=== PATIENT | male | born 1965 | race Caucasian/White ===

== ENCOUNTER 2025-01-02 15:56 | Emergency (ER) | payer OTHER, SELFPAY ==
--- OUTSIDE RECORDS SUMMARY | 2025-01-02 16:00 | XMS_ITS | Clinical Summary ---
Author Organization [facility] Address [address] [place] [address] Care Team Providers Care Perioperative Manager Name Role Phone Nelson Palacios M.D. Primary Care Provider [phone] Source Comments Patient records contain information from all sites at [facility]. For routine questions regarding patient records, call [phone] during business hours, M-F 8:00 AM - 5:00 PM Central Time. Record requests for emergency care only can be directed to [phone] at any time.[facility] Allergies No known active allergies Medications * This document contains information received from the source organization and may not represent a complete record from that organization. multivitamin with minerals capsule Take 1 tablet by mouth daily. 12/09/19 16 Active OMEGA-3/DHA/EPA /DPA/FISH OIL (OMEGA-3 2100 ORAL) Take 1 capsule by mouth daily. 12/09/19 16 Active inhalational spacing device (AEROCHAMBER MV) spacer 1 each as needed (sob). 1 each 10/15/20 17 Active calcium citrate-vitamin D3 (CITRACAL+D) 315-200 mg-unit per tablet Take 1 tablet by mouth 2 (two) times a day with meals. Active ipratropium-alb uteroL (DUONEB) 0.5-2.5 mg/3 mL nebulizer solution Inhale 3 mL by nebulization every 6 (six) hours as needed for wheezing or shortness of breath. 120 mL 11 06/24/20 22 Active miscellaneous medical supply miscIndications :Sleep Apnea Use as directed 1 each 06/06/20 Active aspirin 325 mg tablet Take 1 tablet by mouth daily. 12/09/19 Active ibuprofen (ADVIL,MOTRIN) 200 mg capsule Take 600 mg by mouth every 4 (four) hours as needed. 01/03/20 24 Active melatonin 5 mg tablet Take 5 mg by mouth at bedtime as needed. for sleep 01/04/20 24 Active Tinactin 1 % spray as needed. 12/24/19 24 Active gabapentin (NEURONTIN) 600 mg tabletIndicatio ns:Fibromyalgia TAKE 2 TABLETS(1,200 MG TOTAL) 3 TIMES A DAY 540 tablet 3 03/05/20 24 Active ARIPiprazole (ABILIFY) 5 mg tabletIndicatio ns:Bipolar II Disorder (HCC) take 1 tablet daily 90 tablet 3 03/05/20 24 Active albuterol 90 mcg/actuation inhalerIndicati ons:Chronic Obstructive Pulmonary Disease (HCC) Inhale 2 puffs every 6 (six) hours as needed for wheezing or shortness of breath. 54 g 3 03/27/20 24 Active amitriptyline (ELAVIL) 10 mg tabletIndicatio ns:Fibromyalgia Take 3 tablets (30 mg total) by mouth at bedtime. 270 tablet 3 03/27/20 24 Active Additional Information Patient not taking.Reported on 12/28/2024 hydrOXYzine (ATARAX) 25 mg tabletIndicatio ns:Anxiety Take 1 tablet (25 mg total) by mouth every 6 (six) hours as needed for anxiety. 90 tablet 1 03/27/20 24 Active propranoloL (INDERAL) 10 mg tablet Take 1 tablet (10 mg total) by mouth 2 (two) times a day. 180 tablet 3 03/27/20 24 Active triamcinolone (KENALOG) 0.1 % cream Apply 1 Application topically 2 (two) times a day. Apply to rash on lower legs twice daily. 240 g 3 04/03/20 24 Active DULoxetine (Cymbalta) [address] capsuleIndicati ons:Anxiety,Dep ression Major Recurrent Moderate (HCC) Take 2 capsules (120 mg total) by mouth daily. 180 capsule 3 05/23/20 24 025 Active tadalafiL (Cialis) 10 mg tabletIndicatio ns:Benign Prostatic Hyperplasia Hypertrophy With Obstruction Take 1 tablet (10 mg total) by mouth daily. 90 tablet 3 07/19/20 24 Active omeprazole (PriLOSEC) [address] capsuleIndicati ons:Gastroesoph ageal Reflux Disease Without Esophagitis Take 1 capsule (20 mg total) by mouth daily before morning meal. 90 capsule 3 07/19/20 24 Active tamsulosin (Flomax) 0.4 mg 24 hr capsuleIndicati ons:Benign Prostatic Hyperplasia Hypertrophy With Obstruction Take 2 capsules (0.8 mg total) by mouth daily. 180 capsule 3 08/31/20 24 Active cyclobenzaprine (FlexeriL) 10 mg tablet Take 1 tablet (10 mg total) by mouth 3 (three) times a day as needed for muscle spasms. Use caution, this medicine may impair you. 90 tablet 11/12/19 25 Active acyclovir (Zovirax) 400 mg tabletIndicatio ns:Herpes Genitalis Take 1 tablet (400 mg total) by mouth 4 (four) times a day. 28 tablet 12/28/19 25 Active atorvastatin (Lipitor) 20 mg tabletIndicatio ns:Hyperlipidem ia Mixed Take 1 tablet (20 mg total) by mouth daily. 90 tablet 12/28/19 25 Active vancomycin (Vancocin) 125 mg capsuleIndicati ons:Enterocolit is Due To Clostridium Difficile Not Specified As Recurrent Take 1 capsule (125 mg total) by mouth 4 (four) times a day for 10 days. 40 capsule 12/28/19 25 025 Active acetylcysteine (NAC) 600 mg capsule Take 2 capsules by mouth 2 (two) times a day. 01/26/20 24 025 Discontin ued(Thera py completed ) cyclobenzaprine (FLEXERIL) 10 mg tabletIndicatio ns:Fibromyalgia ,Pain Low Back Chronic TAKE 1 TABLET 3 TIMES A DAYAS NEEDED FOR MUSCLE SPASM (FIBROMYALGIA) 90 tablet 03/05/20 24 025 Discontin ued(Thera py completed ) cephalexin (KEFLEX) 500 mg capsuleIndicati ons:Infection Skin Take 1 capsule (500 mg total) by mouth 3 (three) times a day. 30 capsule 03/27/20 24 025 Discontin ued(Thera py completed ) atorvastatin (LIPITOR) 20 mg tabletIndicatio ns:Hyperlipidem ia Mixed Take 1 tablet (20 mg total) by mouth daily. 90 tablet 3 04/03/20 24 025 Discontin ued(Reord er) acyclovir (ZOVIRAX) 400 mg tablet Take 1 tablet (400 mg total) by mouth 4 (four) times a day. 28 tablet 1 04/09/20 24 025 Discontin ued(Reord er) sulfamethoxazol e-trimethoprim (Bactrim DS) 800-160 mg per tabletIndicatio ns:Sinusitis Acute Take 1 tablet by mouth 2 (two) times a day. 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 Benign Prostatic Hyperplasia Hypertrophy With Ob struction 06/25/2015 Sleep Apnea 04/17/2013 Overview (09/19/2017): Overview: CPAP, diagnosis 2009 Psoriasis 02/28/2013 Overview (09/19/2017): Overview: Elbows, knees Dermatitis Seborrheic 02/28/2013 Gastroesophageal Reflux Disease NOS 04/07/2012 Arthralgia of temporomandibular joint 02/03/2012 Anxiety 12/23/2011 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 meds that were effective as of his last visit at [facility] on 01/24/10 were: Bupropion XL 300mg, cyjmbalta 60mg, Gabapentin 1200mg tid, lithium 300mg tid, and trazodone 200mg at HS. From Dr. Chi's Nov 2010 intake: The patient has had trials on Celexa, Lexapro, Paxil, Prozac, Effexor, Remeron, nortriptyline, amitriptyline, and Cymbalta. He states several of the SSRIs worked for a period of time as did Effexor, but he did not like the side effects and the effects did not seem to last. Neither nortriptyline nor amitriptyline was helpful for pain. HE STATES HE DID Tried strattera for 30 days and stopped because lack of benefit and side effects of difficulty with urination. NOT TOLERATE REMERON. He tried lithium, which did nothing. He states Abilify may have helped, but he did not like the cost. He has not been on Depakote or Tegretol. He retried paxil in 2011 and felt foggy. Pain Back 01/01/2009 Fibromyalgia 01/01/2009 Resolved Problems Problem Noted Date Diagnosed Date Resolved Date Cataract Senile Cortical Left 11/19/2021 01/14/2022 Overview (11/19/2021): Added automatically from request for surgery [id number] Laceration Extensor Muscle F ascia And Tendon Left Index Finger At Wrist And Hand Level Subsequent 02/16/2019 07/15/2021 Overview (02/16/2019): Added automatically from request for surgery [id number] [facility] 01/05/2017 019 Follow Up Examination Postoperative Visit 07/15/2021 Encounters Date Type Department Care Team Description 12/28/2024 8:59 AM CLOTH WEIGHER - 12/28/2024 11:59 PM CLOTH WEIGHER Hospital Encounter Department of Laboratory Medicine in [address] [phone] Ronald Koenig APRN, C.N.P. Diarrhea From Antibiotic Discharge Disposition: Home or Self Care 12/28/2024 8:59 AM CLOTH WEIGHER - 12/28/2024 11:59 PM CLOTH WEIGHER Hospital Encounter Department of Laboratory Medicine in [address] [phone] Ronald Koenig APRN, C.N.P. Diarrhea From Antibiotic Discharge Disposition: Home or Self Care 12/28/2024 8:30 AM CLOTH WEIGHER Office Visit Department of Family Medicine, [facility], in [address] [phone] Westley Walker P.A.-C., Ronald Love APRN CVernellN.P. Enterocolitis Due To Clostridium Difficile Not Specified As Recurrent (Primary Dx); Sinusitis Acute; Chronic Obstructive Pulmonary Disease (HCC); Hyperlipidemia Mixed; Herpes Genitalis 12/28/2024 Results Follow-Up Department of Family Medicine, [facility], in [address] [phone] Ronald Koenig APRN, C.N.P. GI Pathogen Panel, PCR, Feces 12/25/2024 Patient Self-Triage [facility] Symptom Soap Drier Tender, Provider 11/12/2024 9:00 AM CLOTH WEIGHER Telemedicine [facility] in [address] [phone] Rose Crabtree P.A.-C. Sinusitis Acute (Primary Dx); Issue Renewal Prescription from Last 3 Months Immunizations Immunization Administration Dates Next Due DTaP (Infanrix, Tripedia) 08/23/2008 Influenza TIV (IM) 08/17/2012 Influenza, Seasonal, Injectable 08/14/2012,08/16,08/17/2010 Influenza, Unspecified 08/17/2010 PCV20 06/24/2022 PPSV23 11/20/2019 RZV (SHINGRIX) 07/20/2021 SARS-COV-2 (COVID-19) - ISHAAN REYNA (J&J)(Discontinued) 02/12/2021 SARS-COV-2 (COVID-19) - MODE RNA (12 YEARS AND OLDER) Fall Seasonal 09/27/2023 Tdap 02/15/2019,09/29/2011,08/23/2008 influenza vaccine quad (FLUZONE/FLUARIX) (6 months and older)(PF) 09/27/2023,11/02/2022,11/20/2019,2017,09/19/2017,07/07/2016,11/18/2015 Family History Medical History Relation Name Comments ADD Father Tre Alcohol abuse Father Tre Anxiety disorder Father Tre Bipolar Father Tre COPD Father Tre Coronary artery disease Father Tre Trip le bypass Depression Father Tre Heart disease Father Tre Hyperlipidemia Father Tre Hypertension Father Tre Lung cancer Father Tre Melanoma Father Tre Parkinson disease Father Tre Alcohol abuse Mother Neena Anxiety disorder Mother Neena Bipolar Mother Neena Bipolar disorder Mother Neena Coronary artery disease Mother Neena Leth al heart attack Depression Mother Neena Diabetes Mother Neena Heart disease Mother Neena Hypertension Mother Neena Obesity Mother Neena Suicide Attempts Mother Neena Alcohol abuse Paternal Grandfather Cisco Psychiatric disorder Paternal Grandmother Amblyopia Neg Hx Anesthesia problems Neg Hx Blindness Neg Hx Cataracts Neg Hx Glaucoma Neg Hx Macular degeneration Neg Hx Retinal degeneration Neg Hx Retinal detachment Neg Hx Strabismus Neg Hx Relation Name Status Comments Father Tre Mother Neena (Age 51) Paternal Grandfather Cisco Paternal Grandmother Social History Tobacco Use Types Packs/Day Years Used Date Smoking Tobacco: Every Day Cigarettes 0.5 79.5 Started: 1972 Passive Smoke Exposure: Current Smokeless Tobacco: Never Tobacco Cessation:Ready to Q uit: Not Asked; Counseling Given: Not Answered Alcohol Use Standard Drinks/Week Comments Yes 8 (1 standard drink = 0.6 oz pur e alcohol) [facility] Utilities Answer Date Recorded In the past 12 months has [employer] gas, oil, or water [employer] threatened to shut off services in your home? No 03/27/2024 Humiliation, Afraid, Rape, and Kick questionnair e Answer Date Recorded Within the last year, have y ou been afraid of your partner or ex-partner? No 03/14/2023 Within the last year, have y ou been humiliated or emotionally abused in other ways by your partner or ex-partner? No Within the last year, have y ou been kicked, hit, slapped, or otherwise physically hurt by your partner or ex-partner? No 03/14/2023 Within the last year, have y ou been raped or forced to have any kind of sexual activity by your partner or ex-partner? No 03/14/2023 Social Connection and Isolat ion Panel [NHANES] Answer Date Recorded In a typical week, how many times do you talk on the phone with family, friends, or neighbors? More than three times a week 03/14/2023 How often do you get togethe r with friends or relatives? More than three times a week 03/14/2023 How often do you attend chur ch or bahai services? 1 to 4 times per year 03/14/2023 Do you belong to any clubs o r organizations such as hoahaoism groups, unions, fraternal or athletic groups, or school groups? No 03/14/2023 How often do you attend meet ings of the clubs or organizations you belong to? Never 03/14/2023 Are you , , di vorced, , never , or living with a partner? Living with partner 03/14/2023 AUDIT-C Answer Date Recorded Q1: How often do you have a drink containing alc ohol? Never 03/14/2023 Average Number of Drinks Not on file 023 Frequency of Binge Drinking Not on file 06/2023 Overall Financial Resource Strain (CARDIA) Answe r Date Recorded How hard is it for you to pa y for the very basics like food, housing, medical care, and heating? Somewhat hard 03/14/2023 PHQ-2 Answer Date Recorded PHQ-2 Score 5 12/27/2024 [facility] - Occupational Stress Questionnaire Answer Date Recorded Do you feel stress - tense, restless, nervous, or anxious, or unable to sleep at night because your mind is troubled all the time - these days? To some extent 03/14/2023 Exercise Vital Sign Answer Date Recorde d On average, how many days pe r week do you engage in moderate to strenuous exercise (like a brisk walk)? 2 days 03/27/2024 On average, how many minutes do you engage in exercise at this level? 20 min 03/27/2024 Hunger Vital Sign Answer Date Recorded Within the past 12 months, y ou worried that your food would run out before you got the money to buy more. Never true 03/27/20 24 Within the past 12 months, t he food you bought just didn't last and you didn't have money to get more. Never true 03/27/2024 PRAPARE - Transportation Answer Date Re corded In the past 12 months, has l ack of transportation kept you from medical appointments or from getting medications? No 03/08 In the past 12 months, has l ack of transportation kept you from meetings, work, or from getting things needed for daily living? Yes 03/27/2024 Depression Answer Date Recor ded PHQ-9 Total Score (max 27) 22 12/27 Nutrition Answer Date Recorded On average, how many serving s of fruits and vegetables do you eat per day (serving size is equal to 1 cup or approximately the size of a tennis ball)? 0-2 03/27/2024 Dental Answer Date Recorded Dental: Regular Dentist No 11/13/19 Employment Answer Date Recorded Employment status Unemployed/not in e paid workforce but seeking employment 03/27/2024 Housing Stability Answer Date Recorded What is your living situation today? I have a [facility] place to live 03/27/2024 Education Answer Date Recorded What is the highest level of school you have completed or the highest degree you have received? Associate degree: academic program 09/18/2019 Sex and Gender Information Value Date Recorded Sex Assigned at Male 09/29/2021 9:36 AM CLOTH WEIGHER Legal Sex Male 10:27 AM CLOTH WEIGHER Gender Identity Male 09/29/2021 9:36 AM CLOTH WEIGHER Sexual Orientation Straight 11/15/2019 7: 41 PM CLOTH WEIGHER Last Filed Vital Signs Vital Sign Reading Time Taken Comments Blood Pressure 150/93 12/28/2024 8:36 AM CLOTH WEIGHER Pulse 71 12/28/2024 8:36 AM CLOTH WEIGHER Temperature 36.1 C (97 F) 12/28/2024 8:28 AM CLOTH WEIGHER Respiratory Rate 20 11/02/2022 1:52 PM CLOTH WEIGHER Oxygen Saturation 95% 01/11/2022 3:20 PM CLOTH WEIGHER Inhaled Oxygen Concentration - - Weight 113 kg (249 lb 1.9 oz) 12/28/2024 8:28 AM CLOTH WEIGHER Height 170.8 cm (5' 7.24) 12/28/2024 8:28 AM CS T Body Mass Index 38.74 12/28/2024 8:28 AM CLOTH WEIGHER Plan of Treatment Upcoming Encounters Date Type Department Care Team (Late st Contact Info) Description 02/25/2025 3:20 PM CDT Comprehensive Visit Department of Family Medicine, [facility], in [place], [place] [address] [place] [phone] Nelson Palacios M.D. [address] [place] [phone] Health Maintenance Due Date Last Done Comments CT Colonography 1965 Cologuard 1965 FIT 1965 Hepatitis B Screening 1965 Lung Cancer Screening 09/10/2012 09/10/2011 Zoster Vaccines (2 of 2) 09/14/2021 07/20/2021 RSV vaccine - (32-36 weeks) or 60+ years (1 - Risk 60-74 years 1-dose series) 2024 COVID-19 Vaccine ( - 2023- season) 2024 09/27/2023, 12/18/2021, 02/12/2021 Tobacco Cessation counseling 07/12/2024 07/12/2023 Influenza Vaccine (#1) 2024 , 11/02/2022, 11/20/2019, Additional history exists Office Visit for Blood Pressure Check / Re-check 03/27/2025 12/28/2024 Colonoscopy 06/08/2026 06/08/2016 (Perf ormed elsewhere), 11/12/2015 Colorectal Cancer Screening 06/08/2026 Fasting Glucose for Diabetes Screening 12/28/2027 12/28/2024, 03/23/2023, 07/20/2021, Additional history exists Lipid (Cholesterol) Screening 03/23/2028 03/23/2023, 07/20/2021, 11/20/2019, Additional history exists DTaP,Tdap,and Td Vaccines (5 - Td or Tdap) 02/15/2029 02/15/2019, 09/29/2011, 08/23/2008, Additional history exists Hepatitis C Screening Completed 11/20/2019 Pneumococcal vaccine (50+ years) Completed 06/24/2022, 11/20/2019 Depression Screening (Annual PHQ-2) Completed 12/27/2024 Hepatitis B Vaccines Aged Out No long er eligible based on patient's age to complete this topic IPV Vaccines Aged Out No longer eligi ble based on patient's age to complete this topic Medical Devices Implanted Type Area Chief Business Development Officer Device Identifier Shelf Expiration Date Model / Serial / Lot Hardware E.G. Pins/Screws/ Rods Hardware e.g. pins/screws /rods Right: Ankle Lens Tcn [id number] +22.5d - [id number] - [id number] Implanted:Qt y: 1 on 01/11/2022 by Joe Sanders M.D. at [facility] Ocular Lens Left: Eye [employer] (Previously CODY) [id number] 07/03/2025 [id number] / [id number] / Procedures Procedure Name Priority Date/Time Associated Diagnosis Comments GI PATHOGEN PANEL, PCR, F Routine 12/28/2024 9:25 AM CLOTH WEIGHER Diarrhea From Antibiotic BASIC METABOLIC PANEL, S/P Routine 12/28/2024 9:08 AM CLOTH WEIGHER Diarrhea From Antibiotic CBC WITH DIFFERENTIAL, B Routine 12/28/2024 9:08 AM CLOTH WEIGHER Diarrhea From Antibiotic LIPID PANEL, S Routine 03/23/2023 6:08 PM CDT Hyperlipidemia Mixed HCV AB SCRN W/REFLEX TO HCV PCR, S Routine 11/20/2019 3:40 PM CLOTH WEIGHER Health Maintenance Examination Adult from Last 3 Months or Most Recently Relevant to Health Maintenance Results * (ABNORMAL) GI Pathogen Panel, PCR, Feces (12/28/2024 9:25 AM CLOTH WEIGHER) Specimen Source STOOL 11:17 AM CLOTH WEIGHER [facility] Campylobacter species Negative Negative 12/28/2024 11:17 AM CLOTH WEIGHER [facility] C. difficile toxin Positive(A) Negative 12/28 11:17 AM CLOTH WEIGHER [facility] Comment: A positive C. difficile result may reflect asymptomatic carriage or C. difficile-associated diarrhea. Plesiomonas shigelloides Negative Negative 12/28/2024 11:17 AM CLOTH WEIGHER [facility] Salmonella species Negative Negative 2024 11:17 AM CLOTH WEIGHER [facility] Vibrio species Negative Negative 12/28/2024 11:17 AM CLOTH WEIGHER [facility] Vibrio cholerae Negative Negative 11:17 AM CLOTH WEIGHER [facility] Yersinia species Negative Negative 12/28/19 11:17 AM CLOTH WEIGHER [facility] Enteroaggregative E. coli (EAEC) Negative Negative 12/28/2024 11:17 AM CLOTH WEIGHER [facility] Enteropathogenic E. coli (EPEC) Negative Negative 12/28/2024 11:17 AM CLOTH WEIGHER [facility] Enterotoxigenic E. coli (ETEC) Negative Negative 12/28/2024 11:17 AM CLOTH WEIGHER [facility] Shiga toxin producing E. coli Negative Negative 12/28/2024 11:17 AM CLOTH WEIGHER [facility] Shigella/Enteroinvas jamey E. coli Negative Negative 12/28/2024 11:17 AM CLOTH WEIGHER [facility] Cryptosporidium species Negative Negative 12/28/2024 11:17 AM CLOTH WEIGHER [facility] Cyclospora cayetanensis Negative Negative 12/28/2024 11:17 AM CLOTH WEIGHER [facility] Entamoeba histolytica Negative Negative 12/28/2024 11:17 AM CLOTH WEIGHER [facility] Giardia Negative Negative 12/28/2024 11:17 AM CLOTH WEIGHER [facility] Adenovirus F40/41 Negative Negative 025 11:17 AM CLOTH WEIGHER [facility] Astrovirus Negative Negative 12/28/2024 11:17 AM CLOTH WEIGHER [facility] Norovirus GI/GII Negative Negative 12/28/19 25 11:17 AM CLOTH WEIGHER [facility] Rotavirus Ag, F Negative Negative 11:17 AM CLOTH WEIGHER [facility] Sapovirus Negative Negative 12/28/2024 11:17 AM CLOTH WEIGHER [facility] Comment: ----ADDITIONAL INFORMATION---- This assay is performed using the FDA-cleared FilmArray GI Panel ([employer] Semi-Urgent This is a semi-urgent result(MOTA) [facility] Stool (Stool) 12/28/2024 9:2 5 AM CLOTH WEIGHER 12/28/2024 9:25 AM CLOTH WEIGHER us Ronald Koenig APRN, C.N.P. LAB MICROBIOLOGY - GENERAL ORDERABLES Final Result [facility] [address] [place] [address], [facility] [address] [place] [address] * (ABNORMAL) CBC with Differential, Blood (12/28/2024 9:08 AM CLOTH WEIGHER) Hemoglobin 15.6 13.2 - 16.6 g/dL 12/28/2024 9:21 AM CLOTH WEIGHER [facility] Hematocrit 46.2 38.3 - 48.6 % 12/28/2024 9:21 AM CLOTH WEIGHER [facility] Erythrocytes 5.16 4.35 - 5.65 x10(12)/L 12/28/2024 9:21 AM CLOTH WEIGHER [facility] MCV 89.5 78.2 - 97.9 fL 12/28/2024 9:21 AM CLOTH WEIGHER [facility] RBC Distrib Width 14.6(H) 11.8 - 14.5 % 12/28/2024 9:21 AM CLOTH WEIGHER [facility] Platelet Count 315 135 - 317 x10(9)/L 12/28/2024 9:21 AM CLOTH WEIGHER [facility] Leukocytes 8.7 3.4 - 9.6 x10(9)/L 12/28/2024 9:21 AM CLOTH WEIGHER [facility] Neutrophils 5.09 1.56 - 6.45 x10(9)/L 12/28/2024 9:20 AM CLOTH WEIGHER [facility] Lymphocytes 2.52 0.95 - 3.07 x10(9)/L 12/28/2024 9:21 AM CLOTH WEIGHER [facility] Monocytes 0.74 0.26 - 0.81 x10(9)/L 12/28/2024 9:21 AM CLOTH WEIGHER [facility] Eosinophils 0.26 0.03 - 0.48 x10(9)/L 12/28/2024 9:21 AM CLOTH WEIGHER [facility] Basophils 0.08 0.01 - 0.08 x10(9)/L 12/28/2024 9:21 AM CLOTH WEIGHER [facility] Blood (Blood, Venous) 12/28/2024 9:08 AM CLOTH WEIGHER 12/28/2024 9:14 AM CLOTH WEIGHER Ronald Koenig APRN C.NVernellPVernell LAB BLOOD ADD-ON Fi nal Result [facility] [address] [place] [address], [facility] in [place] [address] [place] [address] * (ABNORMAL) Basic Metabolic Panel (12/28/2024 9:08 AM CLOTH WEIGHER) Potassium, P 3.9 3.6 - 5.2 mmol/L 12/28/2024 9:35 AM CLOTH WEIGHER [facility] Sodium, P 142 135 - 145 mmol/L 12/28/2024 9:35 AM CLOTH WEIGHER [facility] Chloride, P 107 98 - 107 mmol/L 12/28/2024 9:35 AM CLOTH WEIGHER [facility] Bicarbonate, P 25 22 - 29 mmol/L 12/28/2024 9:35 AM CLOTH WEIGHER [facility] Anion Gap, P 10 7 - 15 12/28/2024 9:35 AM CLOTH WEIGHER [facility] BUN (Blood Urea Nitrogen), P 10 8 - 24 mg/dL 12/28/2024 9:35 AM CLOTH WEIGHER [facility] Creatinine 0.87 0.74 - 1.35 mg/dL 12/28/2024 9:35 AM CLOTH WEIGHER [facility] Estimated GFR (eGFR) >90 >=60 mL/min/BSA 12/28/2024 9:35 AM CLOTH WEIGHER [facility] Comment: Estimated GFR calculated using the 2020 CKD_EPI creatinine equation. Calcium, Total, P 8.4(L) 8.8 - 10.2 mg/dL 12/28/2024 9:35 AM CLOTH WEIGHER [facility] Glucose, P 102 70 - 140 mg/dL 12/28/2024 9:35 AM CLOTH WEIGHER [facility] Blood (Blood, Venous) 12/28/2024 9:08 AM CLOTH WEIGHER 12/28/2024 9:14 AM CLOTH WEIGHER us Cristian Augustin APRNNRashida LAB BLOOD ADD-ON Fi nal Result [facility] [address] [place] [address], [place] [facility] in [place] [address], [place] [phone] * Lipid Panel (03/23/2023 6:08 PM CDT) Triglycerides 105 mg/dL 03/23/2023 6:38 PM CDT [facility] Comment: ----REFERENCE VALUE---- Normal: <150 mg/dL Borderline High: 150-199 mg/dL High: 200-499 mg/dL Very High: > or =500 mg/dL Cholesterol, Total 127 mg/dL 2022 6:38 PM CDT [facility] Comment: ----REFERENCE VALUE---- Desirable: < 200 mg/dL Borderline High: 200 - 239 mg/dL High: > or = 240 mg/dL Cholesterol, LDL, Calculated 67 mg/dL 03/23/2023 6:38 PM CDT R[facility] Comment: ----REFERENCE VALUE---- Desirable: <100 mg/dL Above Desirable: 100-129 mg/dL Borderline High: 130-159 mg/dL High: 160-189 mg/dL Very High: >=190 mg/dL ----ADDITIONAL INFORMATION---- LDL cholesterol calculated using the Campos/NIH equation. Cholesterol, HDL 41 >=40 mg/dL 03/23/20 6:38 PM CDT [facility] Cholesterol, Non-HDL, Calculated 86 mg/dL 03/23/2023 6:38 PM CDT [facility] Comment: ----REFERENCE VALUE---- Desirable: <130 mg/dL Above Desirable: 130-159 mg/dL Borderline High: 160-189 mg/dL High: 190-219 mg/dL Very High: > or =220 mg/dL Fasting (8 HR or more) yes 03/23/2023 6:13 PM CDT [facility] Blood (Blood, Venous) 03/23/2023 6:08 PM CDT 03/23/2023 6:13 PM CDT us Nelson Palacios M.D. LAB BLOOD ADD-ON Final Re sult Performing Organization Address City/[facility] Co de Phone Number [facility] [address] [place] [address], [facility] R[facility] [place] [address] [place] [address] * HCV Ab Scrn w/Reflex to HCV PCR, Serum (11/20/2019 3:40 PM CLOTH WEIGHER) HCV Ab Screen, S Negative Negative 11/21/19 3:42 AM CLOTH WEIGHER ECLR Comment: Biotin has been identified by the industry segment specialist as a potential interfering substance. Higher concentrations of biotin may be found in multivitamins, hair/nail supplements, and workout supplements. If the result does not match clinical observations, repeat testing after patient refrains from the use of supplements for at least 12 hours. Blood (Blood, Venous) 11/20/2019 3:40 PM CLOTH WEIGHER 11/20/2019 9:47 PM CLOTH WEIGHER Narrative [facility] - 11/21/2019 3:42 AM CLOTH WEIGHER Specimen Information: Specimen ID: [id number] Specimen Type: Blood Specimen Collection Start Date: 11/20/2019 3:40 PM Specimen Received Date: 11/20/2019 9:47 PM Specimen ID: [id number] Specimen Type: Blood Specimen Collection Start Date: 11/20/2019 3:40 PM Specimen Received Date: 11/20/2019 9:46 PM us Paco Kamara M.D. LAB MICROBIOLOGY - BLOOD ORDERAB LES Final Result Performing Organization Address [facility]/ZIP Co de Phone Number [facility] [address] [place] [address], [facility] [address] [address] from Last 3 Months or Most Recently Relevant to Health Maintenance Additional Health Concerns Infection Onset Date Last Indicated C. difficile 12/28/2024 12/28/[address] [place] [address] [facility] Care Teams Perioperative Manager Relationship Specialty Start Date End Date Nelson Palacios M.D. [address] [place] [address] [place] [phone] PCP - General 12/20/22
--- OUTSIDE RECORDS SUMMARY | 2025-01-02 16:00 | XMS_ITS | Data Portability ---
Author Organization CO - [facility], autoContract - [id number] [facility] Address [address] [place] [address] Assessment Encounter Date Assessment Date Assessment LastModified by Organization Details LastModified Time 11/08/2024 11/08/2024 ASSESSMENT: Patient is a good candidate for conservative care and the prognosis is for a favorable outcome that achieves the patients' goals. We discussed etiology, activity modifications, home care, and other treatment options. Initially, it is recommended that the patient receive in-office treatment 1 times per week for 8 weeks at which time a re-evaluation will be performed to determine an appropriate change in plan. Initially, treatment will focus on joint manipulation to restore range of motion and reduce pain. We will slowly progress to therapeutic exercises and activities to improve function, strength, and stability may also be used as warranted. If the patient is not responding as expected, more invasive procedures will be discussed along with a referral. All considerations above were discussed with the patient and questions answered to satisfaction. If the patient should have any additional questions, or should the condition evolve or worsen, the patient should not hesitate to contact our office. [email or web address] Not available 11/08/2024 15:36:50 Plan of Treatment Reminders Order Date Submit Date Provider Last Modified By Organization Details Last Modified Time Details Appointments None record ed. Lab None record ed. Referral None record ed. Procedures None record ed. Surgeries None record ed. Imaging None record ed. Medication Orders None record ed. Patient TargetsNo targets recorded. Patient InstructionsNo instructions recorded. Reason for Referral None Reported. Problems Name Problem SNOMED Code Status Onset Date Resolution Date Notes Provider Name and Address Organization Details Recorded Time Neck pain 02996524 Active 2024 Josef Zayas DC [address], [place], [address], [facility] 15:36:51 Cervical segmental dysfunction 445756161 Active 2024 Josef Zayas DC [address], [place], [address], [facility] 15:36:51 Lumbar segmental dysfunction 204051193 Active 2024 Josef Zayas DC [address], [place], [address], [facility] 15:36:51 Thoracic segmental dysfunction 697308396 Active 2024 Josef Zayas DC [address], [place], [address], [facility] 15:36:51 Lesion of lumbar spine 559519510 Active 2024 Josef Zayas DC [address], [place], [address], [facility] 15:36:51 Problem Notes None recorded. Procedures Surgical History Date Name Laterality Status Provider Name and Address Organization Details Recorded Time 41699: Spinal manipulation , 3 to 4 regions completed Josef Zayas [place] [address], [place], [address], [facility] 11/08/2024 15:37:51 Imaging Results None recorded. Procedure Notes None recorded. Medical Equipment None Reported. Vitals None Recorded Social History None recorded. Functional Status None recorded. Mental Status None recorded. Family History Nothing Reported. Medical History No medical history recorded. Past Encounters Encounter ID Performer Location Encounter Start Date Encounter Closed Date Diagnosis/Indication Diagnosis SNOMED-CT Code Diagnosis ICD10 Code Diagnosis Note [id number] Josef Zayas [facility] [address] [place] [address] 11/08/2024 14:26:07 11/08/2024 16:12:42 Cervical segmental dysfunction 020150882 M99.01 Neck pain 65171330 M54.2 Thoracic s egmental dysfunction 578181820 M99.02 Lumbar seg mental dysfunction 812264874 M99.03 Lesion of lumbar spine 703544060 M99.01 Health Concerns Section Related Observation LastModified by Organization Detai ls LastModified Time None Recorded Concern Status LastModified by Organization Details LastModified Time None Recorded Advance Directives Directive None Recorded Payers Encounter Date Sequence Insurance Name Policy Number Policy Barron Covered Member ID Barron Member ID Guarantor Name 11/08/2024 1 [facility] [id number] Kennedy Nicole [id number] Raji Nicole Notes Date Note Type Note Provider Name and Address Organization Details Recorded Time 11/08/2024 text/html HPI - Cervical SpineReported bypatient.Location: bilateral Quality:aching Severity:moderate Duration:2 weeks Timing:gradual Alleviating Factors:ice Aggravating Factors:sitting Associated Symptoms:no numbness/tingling Sinus problems Along with C0. Josef Zayas DC [address], [place], [address], [facility] 11/08/2024 15:38:04
--- OUTSIDE RECORDS SUMMARY | 2025-01-02 16:00 | XMS_ITS | Continuity of Care Document ---
Author Organization Z [facility] Address [address] [place] [address] [address] [place] [address] Phone Care Team Providers Care Registered Private Duty Nurse Name Role Phone Kevin DE JESUS, Lindsay Unavailable Unavailable Advance Directives Directive Yes / No Effective Date File Name No Information Encounters Encounter Description Practice Location Reason(s) For Visit Diagnoses Date Provider Providers Copied on Encounter Z [facility], [address] [place], [place] [address], [place], [address], [place] tel:[phone] [facility] No Information Kevin Montoya. [facility], [address] [place] [address] [address], [place], [place], [id number] , [place]. tel:[phone] Family History Family Member Type Diagnosis Age At Onset No Information Payers Payer name Insurance type Covered green party ID Authoriza tion(s) No Information Social History Type Description Quantity Date Captured Comments Sex Male Smoking Status No Information Chief Complaint And Reason For Visit No Information Reason For Referral Reason For Referral No Information History Of Present Illness Encounter Date Complaint History Of Prese nt Illness No Information Functional Status Date Functional Assessmen t No Information Instructions Date Instruction Additional Infor mation No Information Assessments Type Assessment Date No Information Patient Care Teams Name Effective Dates (start - stop) Status Members No Information
--- OUTSIDE RECORDS SUMMARY | 2025-01-02 16:00 | XMS_ITS | Encounter Summary ---
Author Organization [facility] Address [address] [place] [address] Care Team Providers Care Wash House Worker Name Role Phone Nelson Palacios M.D. Primary Care Provider [phone] Encounter Details Date Type Department Care Team (Latest Contact Info) Description 12/28/2024 8:59 AM FUR PULLER - 12/28/2024 11:59 PM [facility] Encounter Department of Laboratory Medicine in [place], [place] [address] [place] [phone] Ronald Koenig APRN, C.N.P. [address] [place] [address] Diarrhea From Antibiotic Discharge Disposition: Home or Self Care Social History Tobacco Use Types Packs/Day Years Used Date Smoking Tobacco: Every Day Cigarettes 0.5 79.5 Started: 1972 Passive Smoke Exposure: Current Smokeless Tobacco: Never Alcohol Use Standard Drinks/Week Comments Yes 8 (1 standard drink = 0.6 oz pur e alcohol) [facility] Utilities Answer Date Recorded In the past 12 months has e electric, gas, oil, or water company threatened to shut off services in your [...] 03/14/2023 How often do you attend chur or anglican services? 1 to 4 times per year 03/14/2023 Do you belong to any clubs o r organizations such as evangelical groups, unions, fraternal or athletic groups, or [...] Answer Date Recorded PHQ-2 Score 5 12/27/2024 [facility] Occupat [facility] - Occupational Stress [...] Answer Date Recorded Employment status Unemployed/not in th e paid workforce but seeking employment 03/27/2024 Housing Stability Answer Date Recorded What is your living situation today? I have a [facility] place to live 03/27/2024 Education Answer Date Recorded What is the highest level of school you have completed or the highest degree you have received? Associate degree: academic program 09/18/2019 Sex and Gender Information Value Date Recorded Sex Assigned at Male 09/29/2021 9:36 AM FUR PULLER Legal Sex Male 10:27 AM FUR PULLER Gender Identity Male 09/29/2021 9:36 AM FUR PULLER Sexual Orientation Straight 11/15/2019 7: 41 PM FUR PULLER documented as of this encounter Medications at Time of Discharge acyclovir (Zovirax) 400 mg tabletIndications :Herpes Genitalis Take 1 tablet (400 mg total) by mouth 4 (four) times a day. 28 tablet 12/28/2024 albuterol 90 mcg/actuation inhalerIndication s:Chronic Obstructive Pulmonary Disease (HCC) Inhale 2 puffs every 6 (six) hours as needed for wheezing or shortness of breath. 54 g 3 03/27/2024 amitriptyline (ELAVIL) 10 mg tabletIndications :Fibromyalgia Take 3 tablets (30 mg total) by mouth at bedtime. 270 tablet 3 03/27/2024 ARIPiprazole (ABILIFY) 5 mg tabletIndications :Bipolar II Disorder (HCC) take 1 tablet daily 90 tablet 3 03/05/2024 aspirin 325 mg tablet Take 1 tablet by mouth daily. 12/09/2023 atorvastatin (Lipitor) 20 mg tabletIndications :Hyperlipidemia Mixed Take 1 tablet (20 mg total) by mouth daily. 90 tablet 12/28/2024 calcium citrate-vitamin D3 (CITRACAL+D) 315-200 mg-unit per tablet Take 1 tablet by mouth 2 (two) times a day with meals. cyclobenzaprine (FlexeriL) 10 mg tablet Take 1 tablet (10 mg total) by mouth 3 (three) times a day as needed for muscle spasms. Use caution, this medicine may impair you. 90 tablet 11/12/2024 DULoxetine (Cymbalta) [address] capsuleIndication s:Anxiety,Depress ion Major Recurrent Moderate (HCC) Take 2 capsules (120 mg total) by mouth daily. 180 capsule 3 05/23/2024 gabapentin (NEURONTIN) 600 mg tabletIndications :Fibromyalgia TAKE 2 TABLETS(1,200 MG TOTAL) 3 TIMES A DAY 540 tablet 3 03/05/2024 hydrOXYzine (ATARAX) 25 mg tabletIndications :Anxiety Take 1 tablet (25 mg total) by mouth every 6 (six) hours as needed for anxiety. 90 tablet 1 03/27/2024 ibuprofen (ADVIL,MOTRIN) 200 mg capsule Take 600 mg by mouth every 4 (four) hours as needed. 01/03/2024 inhalational spacing device (AEROCHAMBER MV) spacer 1 each as needed (sob). 1 each 10/15/2017 melatonin 5 mg tablet Take 5 mg by mouth at bedtime as needed. for sleep 01/04/2024 miscellaneous medical supply miscIndications:S leep Apnea Use as directed 1 each 06/06/2023 multivitamin with minerals capsule Take 1 tablet by mouth daily. 12/09/2015 OMEGA-3/DHA/EPA/D PA/FISH OIL (OMEGA-3 2100 ORAL) Take 1 capsule by mouth daily. 12/09/2015 omeprazole (PriLOSEC) [address] capsuleIndication s:Gastroesophagea l Reflux Disease Without Esophagitis Take 1 capsule (20 mg total) by mouth daily before morning meal. 90 capsule 3 07/19/2024 propranoloL (INDERAL) 10 mg tablet Take 1 tablet (10 mg total) by mouth 2 (two) times a day. 180 tablet 3 03/27/2024 tadalafiL (Cialis) 10 mg tabletIndications :Benign Prostatic Hyperplasia Hypertrophy With Obstruction Take 1 tablet (10 mg total) by mouth daily. 90 tablet 3 07/19/2024 tamsulosin (Flomax) 0.4 mg 24 hr capsuleIndication s:Benign Prostatic Hyperplasia Hypertrophy With Obstruction Take 2 capsules (0.8 mg total) by mouth daily. 180 capsule 3 08/31/2024 Tinactin 1 % spray as needed. 12/24/2023 triamcinolone (KENALOG) 0.1 % cream Apply 1 Application topically 2 (two) times a day. Apply to rash on lower legs twice daily. 240 g 3 04/03/2024 vancomycin (Vancocin) 125 mg capsuleIndication s:Enterocolitis Due To Clostridium Difficile Not Specified As Recurrent Take 1 capsule (125 mg total) by mouth 4 (four) times a day for 10 days. 40 capsule 12/28/2024 documented as of this encounter Plan of Treatment Upcoming Encounters Date Type Department Care Team (Late st Contact Info) Description 02/25/2025 3:20 PM CDT Comprehensive Visit Department of Family Medicine, [facility], in [place], [place] [address] [place] [address] Nelson Palacios M.D. [address] [place] [address] documented as of this encounter Procedures Procedure Name Priority Date/Time Associated Diagnosis Comments CBC WITH DIFFERENTIAL, B Routine 12/28/2024 9:08 AM FUR PULLER Diarrhea From Antibiotic BASIC METABOLIC PANEL, S/P Routine 12/28/2024 9:08 AM FUR PULLER Diarrhea From Antibiotic documented in this encounter Results * (ABNORMAL) Basic Metabolic Panel (12/28/2024 9:08 AM FUR PULLER) Potassium, P 3.9 3.6 - 5.2 mmol/L 12/28/2024 9:35 AM FUR PULLER RDWG Sodium, P 142 135 - 145 mmol/L 12/28/2024 9:35 AM FUR PULLER [facility] Chloride, P 107 98 - 107 mmol/L 12/28/2024 9:35 AM FUR PULLER [facility] Bicarbonate, P 25 22 - 29 mmol/L 12/28/2024 9:35 AM FUR PULLER [facility] Anion Gap, P 10 7 - 15 12/28/2024 9:35 AM FUR PULLER [facility] BUN (Blood Urea Nitrogen), P 10 8 - 24 mg/dL 12/28/2024 9:35 AM FUR PULLER [facility] Creatinine 0.87 0.74 - 1.35 mg/dL 12/28/2024 9:35 AM FUR PULLER RDWG Estimated GFR (eGFR) >90 >=60 mL/min/BSA 12/28/2024 9:35 AM FUR PULLER RDWG Comment: Estimated GFR calculated using the 2020 CKD_EPI creatinine equation. Calcium, Total, P 8.4(L) 8.8 - 10.2 mg/dL 12/28/2024 9:35 AM FUR PULLER RDWG Glucose, P 102 70 - 140 mg/dL 12/28/2024 9:35 AM FUR PULLER [facility] Blood (Blood, Venous) 12/28/2024 9:08 AM FUR PULLER 12/28/2024 9:14 AM FUR PULLER us Ronald Koenig APRN, C.N.P. LAB BLOOD ADD-ON Fi nal Result [facility] [address] [place] [address], [email or web address] RDWG [facility] [place] [address] [place] [address] * (ABNORMAL) CBC with Differential, Blood (12/28/2024 9:08 AM FUR PULLER) Pathologist [facility] Hemoglobin 15.6 13.2 - 16.6 g/dL 12/28/2024 9:21 AM FUR PULLER RDWG Hematocrit 46.2 38.3 - 48.6 % 12/28/2024 9:21 AM FUR PULLER RDWG Erythrocytes 5.16 4.35 - 5.65 x10(12)/L 12/28/2024 9:21 AM FUR PULLER RDWG MCV 89.5 78.2 - 97.9 fL 12/28/2024 9:21 AM FUR PULLER RDW[facility] RBC Distrib Width 14.6(H) 11.8 - 14.5 % 12/28/2024 9:21 AM FUR PULLER RDW[facility] Platelet Count 315 135 - 317 x10(9)/L 12/28/2024 9:21 AM FUR PULLER RDWG Leukocytes 8.7 3.4 - 9.6 x10(9)/L 12/28/2024 9:21 AM FUR PULLER RDWG Neutrophils 5.09 1.56 - 6.45 x10(9)/L 12/28/2024 9:20 AM FUR PULLER RDWG Lymphocytes 2.52 0.95 - 3.07 x10(9)/L 12/28/2024 9:21 AM FUR PULLER [facility] Monocytes 0.74 0.26 - 0.81 x10(9)/L 12/28/2024 9:21 AM FUR PULLER [facility] Eosinophils 0.26 0.03 - 0.48 x10(9)/L 12/28/2024 9:21 AM FUR PULLER RDW[facility] Basophils 0.08 0.01 - 0.08 x10(9)/L 12/28/2024 9:21 AM FUR PULLER [facility] Blood (Blood, Venous) 12/28/2024 9:08 AM FUR PULLER 12/28/2024 9:14 AM FUR PULLER us Ronald Koenig APRN, C.N.P. LAB BLOOD ADD-ON Fi nal Result [facility] [address] [place] [address], [place] RDWG [facility] [place] [address] [place] [address] documented in this encounter Visit Diagnoses Diagnosis Diarrhea From Antibiotic documented in this encounter Additional Health Concerns Infection Onset Date Last Indicated Resolved Time C. difficile 12/28/2024 12/28/2024 Assessment Noted Time PHQ-9 Depression Total Score: 22 025 3:56 PM FUR PULLER documented as of this encounter Care Teams Wash House Worker Relationship Specialty Start Date End Date Nelson Palacios M.D. [address] [address] PCP - General 12/20/22 documented as of this encounter
--- OUTSIDE RECORDS SUMMARY | 2025-01-02 16:00 | XMS_ITS | Encounter Summary ---
Author Organization [facility] Address [address] [place] [address] Care Team Providers Care Director Of Guidance Name Role Phone Nelson Palacios M.D. Primary Care Provider [phone] Encounter Details Date Type Department Care Team (Late st Contact Info) Description 12/28/2024 Results Follow-Up Department of Family Medicine, [facility], in [place], [place] [address] [place] [phone] Ronald Koenig APRN, C.N.P. [address] [place] [address] GI Pathogen Panel, PCR, Feces Social History Tobacco Use Types Packs/Day Years Used Date Smoking Tobacco: Every Day Cigarettes 0.5 79.5 Started: 1972 Passive Smoke Exposure: Current Smokeless Tobacco: Never Alcohol Use Standard Drinks/Week Comments Yes 8 (1 standard drink = 0.6 oz pur e alcohol) [facility] Utilities Answer Date Recorded In the past [...] How often do you attend chur or baptist services? 1 to 4 times per year 03/14/2023 Do you belong to any clubs o r organizations such as sikhism groups, unions, fraternal or athletic groups, or [...] Answer Date Recorded PHQ-2 Score 5 12/27/2024 [facility] [place] of Occupat ional Health - Occupational Stress [...] your living situation today? I have a [facility] place to live 03/27/2024 Education Answer Date Recorded What is the highest level of school you have completed or the highest degree you have received? Associate degree: academic program 09/18/2019 Sex and Gender Information Value Date Recorded Sex Assigned at Male 09/29/2021 9:36 AM TELEGRAPH REPEATER INSTALLER Legal Sex Male 10:27 AM TELEGRAPH REPEATER INSTALLER Gender Identity Male 09/29/2021 9:36 AM TELEGRAPH REPEATER INSTALLER Sexual Orientation Straight 11/15/2019 7: 41 PM TELEGRAPH REPEATER INSTALLER documented as of this encounter Plan of Treatment Upcoming Encounters Date Type Department Care Team (Late st Contact Info) Description 02/25/2025 3:20 PM CDT Comprehensive Visit Department of Family Medicine, [facility], in [place], [place] [address] [place] [phone] Nelson Palacios M.D. [address] [facility] [place] [phone] documented as of this encounter Visit Diagnoses Not on filedocumented in this encounter Additional Health Concerns Infection Onset Date Last Indicated Resolved Time C. difficile 12/28/2024 12/28/2024 Assessment Noted Time PHQ-9 Depression Total Score: 22 025 3:56 PM TELEGRAPH REPEATER INSTALLER documented as of this encounter Care Teams Director Of Guidance Relationship Specialty Start Date End Date Nelson Palacios M.D. [address] [place] [address] PCP - General 12/20/22 documented as of this encounter
--- OUTSIDE RECORDS SUMMARY | 2025-01-02 16:00 | XMS_ITS | Encounter Summary ---
Author Organization [facility] Address [address] [place] [address] Care Team Providers Care Software Engineer Developer Name Role Phone Nelson Palacios M.D. Primary Care Provider [phone] Reason for Visit * Reason Comments Diarrhea Persistent diarrhea, ongoing since before xmas Sinus Symptoms Ongoing symptoms sin ce before xmas * Appointment Request (Routine) - Closed Specialty Diagnoses / Procedures Referred By Se miller Referred To Contact Family Medicine Referral ID Status Reason Start Date Expiration Date Visits Re quested Visits Authorized [id number] Closed 12/25/2024 03/27/2026 1 1 Encounter Details Date Type Department Care Team (Latest Contact Info) Description 12/28/2024 8:30 AM OCCUPATIONAL THERAPY ASST Office Visit Department of Family Medicine, [facility], in [place], [place] [address] [place] [phone] Westley Walker, PVernellA.-C., P.A. [address] [place] [phone] Ronald Koenig APRN, C.N.P. 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 (Primary Dx); Sinusitis Acute; Chronic Obstructive Pulmonary Disease (HCC); Hyperlipidemia Mixed; Herpes Genitalis Social History Tobacco Use Types Packs/Day Years Used Date Smoking Tobacco: Every Day Cigarettes 0.5 79.5 Started: 1972 Passive Smoke Exposure: Current Smokeless Tobacco: Never Tobacco Cessation:Ready to Q uit: Not Asked; Counseling Given: Not Answered Alcohol Use Standard Drinks/Week Comments Yes 8 (1 standard drink = 0.6 oz pur e alcohol) [facility] Utilities Answer Date Recorded In the [...] week 03/14/2023 How often do you attend [facility] or christian services? 1 to 4 times per year 03/14/2023 Do you belong to any clubs o r organizations such as catholic groups, unions, fraternal or athletic groups, or [...] Answer Date Recorded PHQ-2 Score 5 12/27/2024 [facility]ational Stress Questionnaire Answer Date Recorded [...] your living situation today? [facility] 03/27/2024 Education Answer Date Recorded What is the highest level of school you have completed or the highest degree you have received? Associate degree: academic program 09/18/2019 Sex and Gender Information Value Date Recorded Sex Assigned at Male 09/29/2021 9:36 AM OCCUPATIONAL THERAPY ASST Legal Sex Male 10:27 AM OCCUPATIONAL THERAPY ASST Gender Identity Male 09/29/2021 9:36 AM OCCUPATIONAL THERAPY ASST Sexual Orientation Straight 11/15/2019 7: 41 PM OCCUPATIONAL THERAPY ASST documented as of this encounter Last Filed Vital Signs Vital Sign Reading Time Taken Comments Blood Pressure 150/93 12/28/2024 8:36 AM OCCUPATIONAL THERAPY ASST Pulse 71 12/28/2024 8:36 AM OCCUPATIONAL THERAPY ASST Temperature 36.1 C (97 F) 12/28/2024 8:28 AM OCCUPATIONAL THERAPY ASST Respiratory Rate - - Oxygen Saturation - - Inhaled Oxygen Concentration - - Weight 113 kg (249 lb 1.9 oz) 12/28/2024 8:28 AM OCCUPATIONAL THERAPY ASST Height 170.8 cm (5' 7.24) 12/28/2024 8:28 AM CS T Body Mass Index 38.74 12/28/2024 8:28 AM OCCUPATIONAL THERAPY ASST documented in this encounter Patient Instructions * Patient Instructions* Ronald Koenig APRN, C.N.P. - 12/28/2024 8:30 AM OCCUPATIONAL THERAPY ASST Images from the original note were not included. Patient Education Sinusitis (Rhinosinusitis) Parker Messages The symptoms of sinusitis can greatly affect your quality of life. Your health care provider will work with you to diagnose your condition and recommend treatment based on the type of sinusitis you have. Introduction Sinus infection (sinusitis*) is an infection and inflammation of the lining of one or more of the air-filled spaces in the cheekbones, between the eyes, and in the forehead. (See Figure 1.) These spaces are referred to as the ???paranasal?? (related to the nose) sinuses. Normally, sinuses are a little wet (moist) with a thin layer of mucus. The lining of the nose also has a coating of mucus that collects tiny bits of pollution (dust, bacteria, etc.) as you breathe. The mucus is constantly drained through your nose, back into the throat and down into the stomach. There, acids destroy the bacteria, dust, etc. Most people do not notice the mucus flow because it???s a normal body function. When something causes one or more sinuses to swell (become inflamed) and this blocks the mucus drainage -- or if there is another kind of blockage -- the mucus may pool in the sinuses. There, germs can multiply, and acute sinusitis can occur. If you have a sinus infection, you may have thick, colored mucus drainage, bad breath, fever, pain in your sinus, cough, stuffy nose, or all of these symptoms. * Many ENT (ear, nose and throat) health care providers use the term ???rhinosinusitis?? instead of ???sinusitis?? because sinus infections typically affect the nose as well as the sinuses. (The prefix ???rhino?? refers to the nose.) Types, Causes and Triggers Three types of sinusitis Acute (happens over a short period of time, suddenly): With acute sinusitis, the blockage prevents the fine hairs in the sinuses (cilia) from clearing the mucus out of the sinus. This leads to a collection of mucus in the sinus, which can become infected. By definition, ???acute?? sinusitis refersto a condition that typically lasts less than 4 weeks. (See Figure 2.) Chronic (happens more constantly or consistently): With chronic sinusitis, the lining of the sinuses becomes damaged and thickened, and the cilia no longer help move the mucus. Symptoms typically last 3 months or more. (See Figure 3.) Recurrent acute (happens repeatedly and suddenly): This condition is diagnosed if you have many occasions of acute sinusitis per year with some recovery time between recurrences. Any sinusitis episode could lead to further complications. Fortunately, these happen rarely. Causes of acute sinusitis Acute sinusitis may happen with one of the following conditions: Common cold or allergies Bacterial infection Viral infection Underlying chronic sinusitis, often with nasal polyps (non-cancerous growths in the nose that can block sinus drainage) A root infection in an upper-jaw molar (tooth) Smoking and air pollution can increase the risk and severity of sinusitis. Causes of chronic sinusitis Chronic sinusitis can be caused by different conditions that lead to inflammation of nose and sinustissues. Triggers Many diseases and conditions may inflame the lining of the nose or sinuses and lead to sinus blockage. Those diseases and conditions include cystic fibrosis, gastroesophageal reflux disease (GERD), allergic or vasomotor rhinitis, fungus balls, dental infections, autoimmune diseases, and immunodeficiency diseases. If you have questions about these conditions, talk to your health care provider. Mold and certain types of airborne organisms (fungus) may cause immune-system reactions that resultin sinus inflammation. Symptoms Sinusitis can cause the following symptoms: Blocked or congested nostrils, which make breathing difficult Drainage of a thick, yellow or greenish discharge from the nose or down the back of the throat Reduced sense of smell or taste Fever Facial pressure and pain, especially in the forehead, temples, cheeks, nose, and behind the eyes Persistent cough Ear or dental pain Sleepiness (fatigue) Diagnosis and Treatment How can you tell if you have a cold, a bad headache (like a migraine) or sinusitis? It can be hard to decide. Diagnosis Though the problem seems to be in the sinuses, migraine symptoms, for example, can be similar to the symptoms of sinus infections. To make a diagnosis, your health care provider may: Discuss your medical history. Give you a physical examination. Order imaging examinations, such as X-rays or computed tomography (CT) scans. Order laboratory testing on the mucus. Refer you for allergy skin tests. Refer you to an ear, nose and throat specialist. After you are diagnosed, your health care provider will talk to you about which treatment option issuited for your needs. Treatment with medications Acute sinusitis caused by a virus usually ends on its own and typically is not treated with antibiotic. When symptoms last longer than 7 to 10 days, or get worse after starting to improve, there may be an additional bacterial cause. Many bacterial infections go away (resolve) on their own and typicallydo not require an antibiotic. However, if symptoms continue or get worse, an antibiotic may be prescribed. Antibiotics only work for bacterial infections, and only a small percentage of acute sinusitis cases are caused by bacteria. Still, most people seen in the [facility] for upper respiratory infection or sinusitis symptoms are prescribed an antibiotic. The overuse of antibiotics may contribute to bacterial resistance against antibiotics. In other words, bacteria can develop the ability to fight off (resist) the work of antibiotics, the very medicines that should help. To help avoid resistance, antibiotics should only be used when symptoms get worse or don???t improve after at least 7 to 10 days. If you test positive for allergies, you may be prescribed medication to reduce the chance of getting an infection. Corticosteroids reduce inflammation. Decongestants or antihistamines temporarily relieve nasal congestion. Treatment with immunotherapy If allergies are the primary or secondary cause of your sinusitis, treatment that helps you handle (tolerate) the cause of the allergic reactions (allergens) may help. This treatment has many names: allergy shots, allergen desensitization, allergen hyposensitization, and allergen immunotherapy. (Imm unotherapy works to improve your infection-fighting [immune] system.) Treatment for recurrent sinusitis If you???ve had sinusitis many times, and the condition continues to occur again (recur) despite good self-care (see ???Tips for Self-Care?? ) and prescription medications, there may be other options. Some of those are: Other medication: This treatment may include cortisone-based medicines (sprays, drops, rinses, pills, or injections); antibiotics; and allergy treatments, including immunotherapy or immune-deficiencytreatment. Endoscopic sinus surgery: With this procedure, a rigid tube (endoscope), with an attached light andcamera, is used to look at the sinuses. Surgical tools that fit through nostrils are used to gentlyopen and clean the sinus passages. The tools also may remove tissue (small growths, ???polyps?? ) or bone that blocks the nasal passages or sinuses. This procedure allows better breathing and opens the sinus areas so topical medication (sprays, drops and rinses) may reach the infection. (Topical medications are applied to the top or ???outside layer?? of the body surface. In this case, that means the spray, drops or rinse reaches the outside layer of the sinuses, even though that layer is inside the body.) Balloon Sinuplasty???: With this procedure, a tiny balloon is threaded along a wire into the affected sinuses. When inflated, the balloon helps open the sinuses. After the balloon is removed, the sinuses stay open. This typically is the least invasive form of surgical treatment for the sinuses. Treatments for chronic sinusitis If your sinusitis has lasted more than 3 months, your health care provider may consider: Medication: This treatment may include cortisone-based medicines (sprays, drops, rinses, pills, or injections); antibiotics; antifungal treatments; and allergy treatments, including immunotherapy or immune-deficiency treatment. Endoscopic sinus surgery: See description in ???Treatment for recurrent sinusitis.?? Permanent damage to the sinuses, including buildup of scar tissue, is possible if chronic or recurrent sinusitis is not treated. Tips for Self-Care There are many effective and inexpensive ways to treat symptoms of sinusitis. Flush (irrigate) the nose with a saltwater (saline) solution to help reduce congestion. Flushing also may be used preventatively twice daily, to help clear bacteria that could be present. Drink plenty of fluids to help thin the mucus so it can drain. Steam your sinuses to open them and allow them to drain. To do this, drape a towel over your head and breathe over a bowl of hot water or inhale through your nose during a hot shower. Use humidifiers or misters to add moisture to the air around you and to help drain the mucus. This can be very helpful while you sleep because you stay in the same room breathing the moist air for many hours. Be sure the machine is clean; check any filters it has and replace them as recommended by the utility worker film processing. Note: Having your humidity too high (more than 60 percent) could lead to more dust mites and mold in your house. If you are allergic to dust mites or mold, you could become sicker if your humidity istoo high. Avoid alcohol if it causes an increase in your nasal congestion. Do not smoke and avoid secondhand smoke to help reduce the irritation of the nasal and sinus areas (passages). For some people, exercise may help open sinuses and allow easier breathing. Leon-lpc-ndyplmj treatments* In addition to the previous suggestions, you may get relief for nasal and sinus obstruction or discomfort by taking non-prescription, zlbm-shj-xyyhqhu (OTC) medications. Many OTC medications combine a decongestant or an antihistamine product with a pain reliever such as acetaminophen (an ingredient found in Tylenol???). * As with any medication, follow label instructions, read the warnings and side- effect information carefully and contact your health care provider if you have questions. If you are taking other medications, talk to your pharmacist or health care provider before treating your sinus symptoms with OTCmedications. OTC medications come in several forms: Nasal saline sprays (non-medicated) -- Saline adds moisture to the nasal lining, which thins the secretions and helps flush out infection. It may be used as often as needed as a mist or a rinse. Nasal decongestant sprays (medicated) -- These products help shrink (decongest) the swollen nasal membranes and can temporarily clear nasal passages. A spray typically is best used at the early stages of a common cold or viral infection. It should be used only for 3 to 5 days. Using a spray after that time frame may lead to a repeating cycle of spraying and congestion (known as rebound congestion), and to a feeling of being dependent on the medication. Decongestant medications -- These medications reduce blood flow to the nasal membranes. This leads to less nasal swelling and congestion, less pressure in the sinuses and head, and less pain. In turn, typically you have improved airflow. These medications may not relieve drippy noses, and they do not treat the underlying cause of the nasal inflammation. Side effects may include light-headedness or over-excitement and increased blood pressure and heartrate. Other medications may interact with oral decongestants, causing side effects. People with high blood pressure or heart problems and those who take other medications should talk to their health care provider before using decongestants. Some decongestants also include a pain reliever (acetaminophen or ibuprofen). Those medications should not be taken with other pain relievers. Antihistamine medications -- OTC antihistamines may be used to relieve allergic symptoms of itching, sneezing and nasal congestion. They also may help stop drainage associated with allergic inflammation. Examples of these are diphenhydramine (Benadryl??? or Genahist???), chlorpheniramine (Chlor-Trim eton??? or Efidac???), loratidine (Alavert??? or Claraitin???), and clemastine (Tavist??? or Dayhist???). Side effects may include feeling sleepy and fuzzy headed. Antihistamines that do not have those sedative affects are recommended. These usually are advertised as being ???non-drowsy?? or ???non-sedating.?? Antihistamine-decongestant combination products -- Antihistamines and decongestant products often are combined to relieve many symptoms of congestion and drainage and to reduce the side effects of both products. For example, antihistamines often lead to feeling sleepy; decongestants reduce that affect (help make the medication ???non-drowsy?? ). See also information in ???Antihistamine medications?? and ???Decongestant medications,?? above. When to Call Your Health Care Provider Contact your health care provider if any of the following nasal or sinus issues occur: Nasal or sinus symptoms continue for 10 days or more after the start of the flu or a cold. Symptoms get worse 5 to 7 days after you noticed them. Symptoms return soon after it seems that a cold or the flu has gone away. New symptoms develop and you have a known chronic or recurrent sinus condition. Swelling or redness develops around your eyes. You have problems with your vision. You have severe pain with fever and a yellow-shayan, pus-like drainage from your nose. For More Information If you have questions after reading this information, contact your health care provider. For more information you may refer to the following websites, which your health care provider does not sponsor or endorse and for which your health care provider does not guarantee the accuracy of the information. These links are provided for general information only and should not be relied upon for personal diagnosis or treatment: National Institutes of Health ([employer]): Medline[employer]Image Medical U.S. Department of Health and Human Services: healthfinder This material is for your education and information only. This content does not replace medical advice, diagnosis or treatment. New medical research may change this information. If you have questionsabout a medical condition, always talk with your health care provider. ?? 2008 [employer] ([facility]). All rights reserved. [id number] PATIONAL THERAPY ASST PATIONAL THERAPY ASST * Attachments The following attachments cannot be sent through Care Everywhere. * Dietary Suggestions for Managing Diarrhea documented in this encounter Progress Notes * Ronald Koenig APRN, C.N.P. - 12/28/2024 8:30 AM CST SUBJECTIVE CHIEF COMPLAINT/PURPOSE OF VISIT Chief Complaint Patient presents with Diarrhea Persistent diarrhea, ongoing since before xmas Sinus Symptoms Ongoing symptoms since before xmas HISTORY OF PRESENT ILLNESS Kennedy Tre Nicole 59 y.o. male who presents with complaints of diarrhea. History provided by Patient. Patient has had 3 months of symptoms. Associated symptoms: watery stools and mucus stools . Patient denies: fever, vomiting, dry heaves, and melena. Symptoms began after multiple rounds of antibiotics for acute sinusitis. Urine output adequate: yes. Number of loose stools in the last 24 hours: 8. Weight loss: no. Exposure history: recent antibiotic use. Past GI problems: no past GI history of significance. Home therapy: OTC diarrhea medicines. Patient also has been having increased sinusitis symptoms. Symptoms include: purulent rhinorrhea, nasal congestion, cough, posterior pharyngeal drainage. Denies the following symptoms: facial pain, facial swelling, fever . Home therapy tried: None . OBJECTIVE Vitals: 12/28/24 0836 BP: (!) 150/93 Pulse: 71 Temp: PHYSICAL EXAMINATION General: Alert and oriented x3, no acute distress. Nontoxic appearance. Awake and conversant. Eyes: Normal conjunctiva, anicteric. Round symmetric pupils. ENT: Hearing grossly intact. Vision grossly intact. Nasal congestion, no nasal discharge. Neck: Neck is supple. No masses or thyromegaly. CV: Regular rate and rhythm. No lower extremity edema. Resp: Respirations not labored, symmetric expansion. Clear to auscultation, no wheezes, rhonchi, orrales. ABD: Soft, normal bowel sounds. MSK: Normal ambulation. No clubbing or cyanosis. Psych: Alert and oriented. Cooperative, Appropriate mood and affect, Normal judgment. Skin: [place], warm, dry and without rashes. Neuro: Sensation and CN II-XII grossly normal. DIAGNOSTICS Recent Results (from the past 24 hours) CBC with Differential, Blood Collection Time: 12/28/24 9:08 AM Result Value Hemoglobin 15.6 Hematocrit 46.2 Erythrocytes 5.16 MCV 89.5 RBC Distrib Width 14.6 (H) Platelet Count 315 Leukocytes 8.7 Neutrophils 5.09 Lymphocytes 2.52 Monocytes 0.74 Eosinophils 0.26 Basophils 0.08 Basic Metabolic Panel Collection Time: 12/28/24 9:08 AM Result Value Potassium, P 3.9 Sodium, P 142 Chloride, P 107 Bicarbonate, P 25 Anion Gap, P 10 BUN (Blood Urea Nitrogen), P 10 Creatinine 0.87 Estimated GFR (eGFR) >90 Calcium, Total, P 8.4 (L) Glucose, P 102 GI Pathogen Panel, PCR, Feces Collection Time: 12/28/24 9:25 AM Specimen: Stool Result Value Specimen Source STOOL Campylobacter species Negative C. difficile toxin Positive (A) Plesiomonas shigelloides Negative Salmonella species Negative Vibrio species Negative Vibrio cholerae Negative Yersinia species Negative Enteroaggregative E. coli (EAEC) Negative Enteropathogenic E. coli (EPEC) Negative Enterotoxigenic E. coli (ETEC) Negative Shiga toxin producing E. coli Negative Shigella/Enteroinvasive E. coli Negative Cryptosporidium species Negative Cyclospora cayetanensis Negative Entamoeba histolytica Negative Giardia Negative Adenovirus F40/41 Negative Astrovirus Negative Norovirus GI/GII Negative Rotavirus Ag, F Negative Sapovirus Negative Semi-Urgent This is a semi-urgent result (MOTA) ASSESSMENT / PLAN #1 Enterocolitis Due To Clostridium Difficile Not Specified As Recurrent GI pathogen panel positive for C difficile. Mild reduction in calcium, otherwise BMP, CBC unremarkable. Start vancomycin 125 mg 4 times a day for 10 days. Encouraged oral rehydration solutions such as Pedialyte or electrolyte water. The patient should take frequent, small sips. If able to tolerate food, it???s best to eat lean meats, fruits, vegetables, and whole-grain breads and cereals. Avoid eating foods with a lot of fat or sugar, which can make symptoms worse. Discussed red flag symptoms that may indicate dehydration and should prompt further evaluation such as decreased urine output, cold feet and hands, pale skin, increased irritability or lethargy, altered responsiveness, or any signs of respiratory distress. Patient should follow up with primary care provider if symptoms do not improve within 72 hours or if any red flag symptoms occur. - CBC with Differential, Blood; Future; Expected date: 12/28/2024 - Basic Metabolic Panel; Future; Expected date: 12/28/2024 - GI Pathogen Panel, PCR, Feces; Future; Expected date: 12/28/2024 #2 Sinusitis Acute Vancomycin 125 mg 4 times a day for 10 days coverage for C diff should also address his sinusitis. Discussed OTC medications including Intranasal steroids, Flonase or Nasonex, 2 sprays to each nostril daily, saline nasal sprays and irrigation, honey, warm liquids, humidified air, dextromethorphan or guaifenesin syrup per package instructions, Tylenol/ibuprofen for pain and fever, decongestant usediscussed, antihistamine use discussed. Symptomatic measures discussed. Increase fluids. Humidifiedair. Hot steam or showers. Nasal saline flushes. Flonase nasal spray daily. Follow up in one week if not improving, sooner if symptoms are worsening. #3 Chronic Obstructive Pulmonary Disease (HCC) Patient seen today for an acute need but has complicating comorbidities. SOB, cough is stable. Patient has chronic comorbidities managed by PCP as noted, control looks adequate, labs and medications reviewed to help in treatment determination and patient advised. #4 Hyperlipidemia Mixed Atorvastatin refilled - atorvastatin (Lipitor) 20 mg tablet; Take 1 tablet (20 mg total) by mouth daily., Starting Tue12/28/2024, Normal #5 Herpes Genitalis Acyclovir refilled - acyclovir (Zovirax) 400 mg tablet; Take 1 tablet (400 mg total) by mouth 4 (four) times a day., Starting Tue12/28/2024, Normal Patient/caregiver was instructed to contact the clinic if symptoms fail to improve as discussed, worsen, or change. Patient/caregiver was in agreement with the care plan and all questions were answered to patient's/caregiver's satisfaction. Health maintenance was discussed, and the patient/caregiver was encouraged to complete these if not already completed. Patient left in no acute distress. I personally spent 20 minutes in care of the patient today. Time includes both non face to face andface to face patient care. PATIONAL THERAPY ASST documented in this encounter Plan of Treatment Upcoming Encounters Date Type Department Care Team (Late st Contact Info) Description 02/25/2025 3:20 PM CDT Comprehensive Visit Department of Family Medicine, [facility], in [address] [phone] Nelson Palacios M.D. [address] [place] [phone] documented as of this encounter Results * (ABNORMAL) GI Pathogen Panel, PCR, Feces (12/28/2024 9:25 AM OCCUPATIONAL THERAPY ASST) Specimen Source STOOL 11:17 AM OCCUPATIONAL THERAPY ASST [facility] Campylobacter species Negative Negative 12/28/2024 11:17 AM OCCUPATIONAL THERAPY ASST [facility] C. difficile toxin Positive(A) Negative 12/28 11:17 AM OCCUPATIONAL THERAPY ASST [facility] Comment: A positive C. difficile result may reflect asymptomatic carriage or C. difficile-associated diarrhea. Plesiomonas shigelloides Negative Negative 12/28/2024 11:17 AM OCCUPATIONAL THERAPY ASST [facility] Salmonella species Negative Negative 2024 11:17 AM OCCUPATIONAL THERAPY ASST [facility] Vibrio species Negative Negative 12/28/2024 11:17 AM OCCUPATIONAL THERAPY ASST [facility] Vibrio cholerae Negative Negative 11:17 AM OCCUPATIONAL THERAPY ASST [facility] Yersinia species Negative Negative 12/28/19 11:17 AM OCCUPATIONAL THERAPY ASST [facility] Enteroaggregative E. coli (EAEC) Negative Negative 12/28/2024 11:17 AM OCCUPATIONAL THERAPY ASST [facility] Enteropathogenic E. coli (EPEC) Negative Negative 12/28/2024 11:17 AM OCCUPATIONAL THERAPY ASST [facility] Enterotoxigenic E. coli (ETEC) Negative Negative 12/28/2024 11:17 AM OCCUPATIONAL THERAPY ASST [facility] Shiga toxin producing E. coli Negative Negative 12/28/2024 11:17 AM OCCUPATIONAL THERAPY ASST [facility] Shigella/Enteroinvas jamey E. coli Negative Negative 12/28/2024 11:17 AM OCCUPATIONAL THERAPY ASST [facility] Cryptosporidium species Negative Negative 12/28/2024 11:17 AM OCCUPATIONAL THERAPY ASST [facility] Cyclospora cayetanensis Negative Negative 12/28/2024 11:17 AM OCCUPATIONAL THERAPY ASST [facility] Entamoeba histolytica Negative Negative 12/28/2024 11:17 AM OCCUPATIONAL THERAPY ASST [facility] Giardia Negative Negative 12/28/2024 11:17 AM OCCUPATIONAL THERAPY ASST [facility] Adenovirus F40/41 Negative Negative 025 11:17 AM OCCUPATIONAL THERAPY ASST [facility] Astrovirus Negative Negative 12/28/2024 11:17 AM OCCUPATIONAL THERAPY ASST [facility] Norovirus GI/GII Negative Negative 12/28/19 11:17 AM OCCUPATIONAL THERAPY ASST [facility] Rotavirus Ag, F Negative Negative 11:17 AM OCCUPATIONAL THERAPY ASST [facility] Sapovirus Negative Negative 12/28/2024 11:17 AM OCCUPATIONAL THERAPY ASST [facility] Comment: ----ADDITIONAL INFORMATION---- This assay is performed using the FDA-cleared FilmArray GI Panel ([employer] Semi-Urgent This is a semi-urgent result(MOTA) [facility] Stool (Stool) 12/28/2024 9:2 5 AM OCCUPATIONAL THERAPY ASST 12/28/2024 9:25 AM OCCUPATIONAL THERAPY ASST Cristian Augustin APRNNRashida LAB MICROBIOLOGY - GENERAL ORDERABLES Final Result [facility] [address] [place] [address], [facility] [address] [place] [address] * (ABNORMAL) Basic Metabolic Panel (12/28/2024 9:08 AM OCCUPATIONAL THERAPY ASST) Potassium, P 3.9 3.6 - 5.2 mmol/L 12/28/2024 9:35 AM OCCUPATIONAL THERAPY ASST [facility] Sodium, P 142 135 - 145 mmol/L 12/28/2024 9:35 AM OCCUPATIONAL THERAPY ASST [facility] Chloride, P 107 98 - 107 mmol/L 12/28/2024 9:35 AM OCCUPATIONAL THERAPY ASST [facility] Bicarbonate, P 25 22 - 29 mmol/L 12/28/2024 9:35 AM OCCUPATIONAL THERAPY ASST [facility] Anion Gap, P 10 7 - 15 12/28/2024 9:35 AM OCCUPATIONAL THERAPY ASST [facility] BUN (Blood Urea Nitrogen), P 10 8 - 24 mg/dL 12/28/2024 9:35 AM OCCUPATIONAL THERAPY ASST [facility] Creatinine 0.87 0.74 - 1.35 mg/dL 12/28/2024 9:35 AM OCCUPATIONAL THERAPY ASST [facility] Estimated GFR (eGFR) >90 >=60 mL/min/BSA 12/28/2024 9:35 AM OCCUPATIONAL THERAPY ASST [facility] Comment: Estimated GFR calculated using the 2020 CKD_EPI creatinine equation. Calcium, Total, P 8.4(L) 8.8 - 10.2 mg/dL 12/28/2024 9:35 AM OCCUPATIONAL THERAPY ASST [facility] Glucose, P 102 70 - 140 mg/dL 12/28/2024 9:35 AM OCCUPATIONAL THERAPY ASST [facility] Blood (Blood, Venous) 12/28/2024 9:08 AM OCCUPATIONAL THERAPY ASST 12/28/2024 9:14 AM OCCUPATIONAL THERAPY ASST us Ronald Koenig APRN C.N.PVernell LAB BLOOD ADD-ON Fi nal Result [facility] [address] [place] [address], [facility] in [place] [address] [facility] [place] [address] * (ABNORMAL) CBC with Differential, Blood (12/28/2024 9:08 AM OCCUPATIONAL THERAPY ASST) Hemoglobin 15.6 13.2 - 16.6 g/dL 12/28/2024 9:21 AM OCCUPATIONAL THERAPY ASST [facility] Hematocrit 46.2 38.3 - 48.6 % 12/28/2024 9:21 AM OCCUPATIONAL THERAPY ASST [facility] Erythrocytes 5.16 4.35 - 5.65 x10(12)/L 12/28/2024 9:21 AM OCCUPATIONAL THERAPY ASST [facility] MCV 89.5 78.2 - 97.9 fL 12/28/2024 9:21 AM OCCUPATIONAL THERAPY ASST [facility] RBC Distrib Width 14.6(H) 11.8 - 14.5 % 12/28/2024 9:21 AM OCCUPATIONAL THERAPY ASST [facility] Platelet Count 315 135 - 317 x10(9)/L 12/28/2024 9:21 AM OCCUPATIONAL THERAPY ASST [facility] Leukocytes 8.7 3.4 - 9.6 x10(9)/L 12/28/2024 9:21 AM OCCUPATIONAL THERAPY ASST [facility] Neutrophils 5.09 1.56 - 6.45 x10(9)/L 12/28/2024 9:20 AM OCCUPATIONAL THERAPY ASST [facility] Lymphocytes 2.52 0.95 - 3.07 x10(9)/L 12/28/2024 9:21 AM OCCUPATIONAL THERAPY ASST [facility] Monocytes 0.74 0.26 - 0.81 x10(9)/L 12/28/2024 9:21 AM OCCUPATIONAL THERAPY ASST [facility] Eosinophils 0.26 0.03 - 0.48 x10(9)/L 12/28/2024 9:21 AM OCCUPATIONAL THERAPY ASST [facility] Basophils 0.08 0.01 - 0.08 x10(9)/L 12/28/2024 9:21 AM OCCUPATIONAL THERAPY ASST [facility] Blood (Blood, Venous) 12/28/2024 9:08 AM OCCUPATIONAL THERAPY ASST 12/28/2024 9:14 AM OCCUPATIONAL THERAPY ASST Ronald Koenig APRN, C.N.P. LAB BLOOD ADD-ON Fi nal Result [facility] [address] [place] [address], [facility] in [place] [address] [phone] documented in this encounter Visit Diagnoses Diagnosis Enterocolitis Due To Clostridium Difficile Not Specified As Recurrent- Primary Sinusitis Acute Chronic Obstructive Pulmonary Disease (HCC) Hyperlipidemia Mixed Herpes Genitalis documented in this encounter Additional Health Concerns Assessment Noted Time PHQ-9 Depression Total Score: 22 025 3:56 PM OCCUPATIONAL THERAPY ASST documented as of this encounter Care Teams Software Engineer Developer Relationship Specialty Start Date End Date Nelson Palacios M.D. [address] [place] [address] PCP - General 12/20/22 documented as of this encounter
--- OUTSIDE RECORDS SUMMARY | 2025-01-02 16:00 | XMS_ITS | Encounter Summary ---
Author Organization [facility] Address [address] [place] [address] Care Team Providers Care Diamond Powder Technician Name Role Phone Nelson Palacios M.D. Primary Care Provider [phone] Encounter Details Date Type Department Care Team (Latest Contact Info) Description 12/28/2024 8:59 AM SURVEY ENGINEER - 12/28/2024 11:[address] [facility] Hospital Encounter Department of Laboratory Medicine in [place], [place] [address] [place] [phone] Ronald Koenig APRN, C.N.P. [address] [place] [address] Diarrhea From Antibiotic Discharge Disposition: Home or Self Care Social History Tobacco Use Types Packs/Day Years Used Date Smoking Tobacco: Every Day Cigarettes 0.5 79.5 Started: 1973 Passive Smoke Exposure: Current Smokeless Tobacco: Never Alcohol Use Standard Drinks/Week Comments Yes 8 (1 standard drink = 0.6 oz pur e alcohol) [facility] Utilities Answer Date Recorded In the [...] How often do you attend chur or yazdanism services? 1 to 4 times per year 03/14/2023 Do you belong to any clubs o r organizations such as uatsdin groups, unions, fraternal or athletic groups, or [...] Answer Date Recorded PHQ-2 Score 5 12/27/2024 [facility] - Occupational [...] living situation today? I have a [facility] place to live 03/27/2024 Education Answer Date Recorded What is the highest level of school you have completed or the highest degree you have received? Associate degree: academic program 09/18/2019 Sex and Gender Information Value Date Recorded Sex Assigned at Male 09/29/2021 9:36 AM SURVEY ENGINEER Legal Sex Male 10:27 AM SURVEY ENGINEER Gender Identity Male 09/29/2021 9:36 AM SURVEY ENGINEER Sexual Orientation Straight 11/15/2019 7: 41 PM SURVEY ENGINEER documented as of this encounter Medications at [...] CDT Comprehensive Visit Department of Family Medicine, [facility], in [place], [place] [address] [place] [phone] Nelson Palacios M.D. [address] [place] [phone] documented as of this encounter Procedures Procedure Name Priority Date/Time Associated Diagnosis Comments GI PATHOGEN PANEL, PCR, F Routine 12/28/2024 9:25 AM SURVEY ENGINEER Diarrhea From Antibiotic documented in this encounter Results * (ABNORMAL) GI Pathogen Panel, PCR, Feces (12/28/2024 9:25 AM SURVEY ENGINEER) Specimen Source STOOL 11:17 AM SURVEY ENGINEER [facility] Campylobacter species Negative Negative 12/28/2024 11:17 AM SURVEY ENGINEER [facility] C. difficile toxin Positive(A) Negative 12/28 11:17 AM SURVEY ENGINEER [facility] Comment: A positive C. difficile result may reflect asymptomatic carriage or C. difficile-associated diarrhea. Plesiomonas shigelloides Negative Negative 12/28/2024 11:17 AM SURVEY ENGINEER [facility] Salmonella species Negative Negative 2024 11:17 AM SURVEY ENGINEER [facility] Vibrio species Negative Negative 12/28/2024 11:17 AM SURVEY ENGINEER [facility] Vibrio cholerae Negative Negative 11:17 AM SURVEY ENGINEER [facility] Yersinia species Negative Negative 12/28/19 11:17 AM SURVEY ENGINEER [facility] Enteroaggregative E. coli (EAEC) Negative Negative 12/28/2024 11:17 AM SURVEY ENGINEER [facility] Enteropathogenic E. coli (EPEC) Negative Negative 12/28/2024 11:17 AM SURVEY ENGINEER [facility] Enterotoxigenic E. coli (ETEC) Negative Negative 12/28/2024 11:17 AM SURVEY ENGINEER [facility] Shiga toxin producing E. coli Negative Negative 12/28/2024 11:17 AM SURVEY ENGINEER [facility] Shigella/Enteroinvas jamey E. coli Negative Negative 12/28/2024 11:17 AM SURVEY ENGINEER [facility] Cryptosporidium species Negative Negative 12/28/2024 11:17 AM SURVEY ENGINEER [facility] Cyclospora cayetanensis Negative Negative 12/28/2024 11:17 AM SURVEY ENGINEER [facility] Entamoeba histolytica Negative Negative 12/28/2024 11:17 AM SURVEY ENGINEER [facility] Giardia Negative Negative 12/28/2024 11:17 AM SURVEY ENGINEER [facility] Adenovirus F40/41 Negative Negative 025 11:17 AM SURVEY ENGINEER [facility] Astrovirus Negative Negative 12/28/2024 11:17 AM SURVEY ENGINEER [facility] Norovirus GI/GII Negative Negative 12/28/19 11:17 AM SURVEY ENGINEER [facility] Rotavirus Ag, F Negative Negative 11:17 AM SURVEY ENGINEER [facility] Sapovirus Negative Negative 12/28/2024 11:17 AM SURVEY ENGINEER [facility] Comment: ----ADDITIONAL INFORMATION---- This assay is performed using the FDA-cleared FilmArray GI Panel ([employer] Semi-Urgent This is a semi-urgent result(MOTA) [facility] Stool (Stool) 12/28/2024 9:2 5 AM SURVEY ENGINEER 12/28/2024 9:25 AM SURVEY ENGINEER us Nisreen Augustin APRN.N.PVernell LAB MICROBIOLOGY - GENERAL ORDERABLES Final Result [facility] [address] [address], [place] [address] [place] [address] documented in this encounter Visit Diagnoses Diagnosis Diarrhea From Antibiotic documented in this encounter Additional Health Concerns Infection Onset Date Last Indicated Resolved Time C. difficile 12/28/2024 12/28/2024 Assessment Noted Time PHQ-9 Depression Total Score: 22 025 3:56 PM SURVEY ENGINEER documented as of this encounter Care Teams Diamond Powder Technician Relationship Specialty Start Date End Date Nelson Palacios M.D. [address] [phone] PCP - General 12/20/22 documented as of this encounter
--- OUTSIDE RECORDS SUMMARY | 2025-01-02 16:00 | XMS_ITS | Encounter Summary ---
Author Organization [facility] Address [address] [place] [address] Care Team Providers Care Grubber Name Role Phone Nelson Palacios M.D. Primary Care Provider [phone] Encounter Details Date Type Department Care Team (Late st Contact Info) Description 12/25/2024 Patient Self-Triage [facility] Symptom Watch Supervisor, Provider Social History Tobacco Use Types Packs/Day Years Used Date Smoking Tobacco: Every Day Cigarettes 0.3 52.7 Started: 1973 Passive Smoke Exposure: Current Smokeless Tobacco: Never Alcohol Use Standard Drinks/Week Comments No 0 (1 standard drink = 0.6 oz pur e alcohol) [facility] Utilities Answer Date Recorded In the past 12 months has e electric, gas, oil, or water 911 [employer] threatened to shut off services in your [...] often do you attend chur ch or nondenominational services? 1 to 4 times per year 03/14/2023 Do you belong to any clubs o r organizations such as restorationist groups, unions, fraternal or athletic groups, or [...] 03/14/2023 PHQ-2 Answer Date Recorded PHQ-2 Score 6 11/28/2023 [facility] - Occupational [...] Recor ded PHQ-9 Total Score (max 27) 25 11/28 Nutrition Answer Date Recorded On average, how [...] your living situation today? I have a [employer] place to live 03/27/2024 Education Answer Date Recorded What is the highest level of school you have completed or the highest degree you have received? Associate degree: academic program 09/18/2019 Sex and Gender Information Value Date Recorded Sex Assigned at Male 09/29/2021 9:36 AM LABOR ECONOMICS TEACHER Legal Sex Male 10:27 AM LABOR ECONOMICS TEACHER Gender Identity Male 09/29/2021 9:36 AM LABOR ECONOMICS TEACHER Sexual Orientation Straight 11/15/2019 7: 41 PM LABOR ECONOMICS TEACHER documented as of this encounter Plan of Treatment Upcoming Encounters Date Type Department Care Team (Late st Contact Info) Description 02/25/2025 3:20 PM CDT Comprehensive Visit Department of Family Medicine, [facility], in [place], [place] [address] [place] [phone] Nelson Palacios M.D. [address] [place] [phone] documented as of this encounter Visit Diagnoses Not on filedocumented in this encounter Additional Health Concerns Assessment Noted Time PHQ-9 Depression Total Score: 25 024 2:42 PM LABOR ECONOMICS TEACHER documented as of this encounter Care Teams Grubber Relationship Specialty Start Date End Date Nelson Palacios M.D. [address] [place] [address] [place] [address] PCP - General 12/20/22 documented as of this encounter
--- OUTSIDE RECORDS SUMMARY | 2025-01-02 16:00 | XMS_ITS | Continuity of Care Document ---
Author Organization [facility] Address [address] [place] [address] Phone Care Team Providers Care Flat Folder Name Role Phone Silvia Sorto CNP Unavailable Unavailab le Procedures Procedure Date Offic Cons New/estab Mod-hi 60 09 Advance Directives Directive Yes / No Effective Date File Name No Information Encounters Encounter Description Practice Location Reason(s) For Visit Diagnoses Date Provider Providers Copied on Encounter Offic Cons New/estab Mod-hi 60 [facility], [address], [place], [place], [id number], [place] tel:[phone] [facility] No Information Macario Carreon. [address] [place], [address], . Referring Provider: Phoenix Li MD, [address] [place], [address]. tel:[phone] Family History Family Member Type Diagnosis Age At Onset No Information Payers Payer name Insurance type Covered green party ID Authoriza tigila(s) [facility] [id number] Social History Type Description Quantity Date Captured [...]
[2025-01-02 16:18] VITALS: BP 123/81; PULSE 94; RESP 20; TEMP 37; O2SAT 96; BMI 38.0
--- NOTE | 2025-01-02 16:45 | ED_ITS ---
HPI - General Adult General Chief complaint: Cough Stated complaint: Possible Pneumonia, C diff, sinus infection Time Seen by Provider: 01/02/25 16:45 History of Present Illness HPI narrative: Pt has had issues with sinus infection since October , multiple abx to treat this. Developed diarrhea and has been dx with C-diff colitis, on vancomycin since tuesday. Believes he may have pneumonia as he has developed cough/lung congestion. Pt had a syncopal episode while coughing last night. States I've just been getting worse and sicker. Suspects he is dehydrated as well. 59-year-old man presenting to the emergency department with concern of potential sinus infection and cough. Has been struggling with facial congestion and increasing levels of discomfort, swelling since early October of last year. Multiple rounds of antibiotics appear to have lead to C difficile colitis. Just started vancomycin. Did have a diarrheal stool yet this morning but overall frequency has decreased over the last couple of days that he has been taking the vancomycin. Today increasing cough and congestion. Cough so hard he seems to have passed out. Trouble he thinks keeping up on fluids. Has been having lots of leg cramps complicated by fibromyalgia. Itching lower legs he says. Abdomen is not so much painful he says more bloated. Primary recommended Mucinex among some other [id number]. Unclear to me that has taking pseudoephedrine. No steroids have been prescribed in this course of illness. No other history of dental infections, abscesses and has been feeling more puffy in the right maxillary area as well. Related Data Home Medications ?Medication ?Instructions ?Recorded ?Confirmed acyclovir 400 mg tablet mg 01/02/25 atorvastatin 20 mg tablet mg DAILY 01/02/25 duloxetine 60 mg capsule,delayed 120 mg PO DAILY 01/02/25 01/02/25 release gabapentin 600 mg tablet 1,200 mg PO 3XD 01/02/25 01/02/25 omeprazole 20 mg capsule,delayed 20 mg PO QAM 01/02/25 01/02/25 release tadalafil 10 mg tablet 10 mg PO DAILY 01/02/25 01/02/25 tamsulosin 0.4 mg capsule 0.8 mg PO DAILY 01/02/25 01/02/25 vancomycin 125 mg capsule mg 01/02/25 Allergies Allergy/AdvReac Type Severity Reaction Status Date / Time No Known Drug Allergies Allergy Verified 01/02/25 16:22 Review of Systems Status of ROS: Reports: 6 or more systems reviewed and unremarkable except as noted in History and below [facility] Social History Smoking Status: Current some day smoker What tobacco products do you use: cigarettes Do you use any of these nicotine containing products: None How often do you have a drink containing alcohol: monthly or less How often do you have six or more drinks on one occasion: Never AUDIT-C Alcohol total score: 1 Non-prescribed substance use: denies use Exam Narrative: Exam Narrative: Pleasant. Seems uncomfortable. Quite laryngitic. Intermittent congested cough. Lungs rather diffusely with crepitus but then clearing with further coughing. Oropharynx is hyperemic and little dry. Abdomen is soft and nontender. Heart in elevated regular rate. Congested in the nasopharynx. Sore to palpation over the forehead. Light excoriations on the lower legs without edema. I do not see discrete swelling along the gums to indicate drainable abscess. Const: Vital Signs, click to edit/add: Vital Signs - 24 hr 01/02/25 16:18 Temperature 98.6 F Pulse Rate [Pulse Oximeter] 94 Respiratory Rate 20 Blood Pressure [Ri ght Upper Arm] 123/81 Pulse Oximetry 96 Oxygen Delivery Me thod Room Air Documenting provider has reviewed patient's vital signs: yes Course Vital Signs Vital signs: Initial Vital Signs Temperature 98.6 F 01/02/25 16:18 Temperature Source Temporal Artery Scan 01/02/25 16:18 Pulse Rate 94 01/02/25 16:18 Respiratory Rate 20 01/02/25 16:18 Blood Pressure 123/81 01/02/25 16:18 Blood Pressure Mean 95 01/02/25 16:18 Blood Pressure Position Sitting 01/02/25 16:18 Pulse Oximetry 96 01/02/25 16:18 Oxygen Delivery Method Room Air 01/02/25 16:18 Vital Signs Temperature 98.6 F 01/02/25 16:18 Pulse Rate 94 01/02/25 16:18 Respiratory Rate 20 01/02/25 16:18 Blood Pressure 123/81 01/02/25 16:18 Pulse Oximetry 96 01/02/25 16:18 Oxygen Delivery Method Room Air 01/02/25 16:18 Temperature 98.6 F 01/02/25 16:18 Pulse Rate 94 01/02/25 16:18 Respiratory Rate 20 01/02/25 16:18 Blood Pressure 123/81 01/02/25 16:18 Pulse Oximetry 96 01/02/25 16:18 Oxygen Delivery Method Room Air 01/02/25 16:18 Medical Decision Making MDM Narrative Medical decision making narrative: Would screen for influenza RSV and COVID considering community prevalence. I think also with persistent symptoms and without imaging to date as described should do a sinus CT. This would also evaluate for dental problems/abscesses. Chest x-ray to evaluate for pneumonia. Double check labs as well given duration of illness Indication: Cough. Technique: PA and lateral views of the chest. Comparison: None. Findings: Normal cardiomediastinal silhouette. Mild interstitial prominence. No focal consolidation, pleural effusions, or visualized pneumothorax. Moderate degenerative changes of the visualized spine. Impression: Mild interstitial prominence may represent atypical infection or inflammation. Dictated by Tc Strange MD @ 01/02/2025 5:23:[address] independently reviewed by me with quite full right sided sinus system. Also appears to have some abscesses about the right upper molars Indication: Facial congestion and pain. Technique: CT of the sinuses performed without IV contrast Comparison: None relevant available Findings: Frontal sinuses: Completely opacified on the right. Left side is clear. Ethmoid sinuses: Moderate right-sided mucosal disease. Left side is clear. Maxillary sinuses: Completely opacified on the right. Left side is clear. Widening of the right maxillary antrum. Sphenoid sinuses: Clear. Right ostiomeatal unit is occluded. The sphenoethmoidal and frontoethmoidal recesses are patent. Right frontoethmoidal recess is occluded. Nasal Cavity: No significant nasal septal deviation. No air-fluid levels identified. No aggressive periosteal reaction or osseous erosion. Large periapical lucency involving right maxillary 1st molar tooth with dehiscence into the inferior maxilla. Intracranial structures appear grossly intact. Impression: 1. Severe right maxillary, ethmoid and frontal sinusitis. 2. Widening of the right maxillary antrum could be postsurgical or relate to an chronic obstructive process. 3. Significant periodontal disease with periapical abscess and dehiscence into the inferior maxilla at the right 1st maxillary molar. Please note that all CT scans at this facility use dose modulation, iterative reconstruction, and/or weight-based dosing when appropriate to reduce radiation dose to as low as reasonably achievable. Dictated by Pipo Thomas MD @ 01/02/2025 6:14:28 PM Vancomycin should cover many oral organisms. Would focus otherwise on some decongestion/drainage. Needs close follow-up. Diagnosed also with influenza a today. Labs otherwise reassuring. Continue to focus on hydration. If you have not already, you might benefit from 12 hour pseudoephedrine which you can purchase with class a regional drivers's license [id number] for decongestion. I would also consider Neti pot nasal saline rinses. Sleep under the mist of a cool mist humidifier. You might benefit from a visit from ENT in follow-up. Your primary can refer you or I believe you could probably make an appointment yourself as well. See handout of dental clinics you might consider for these dental abscesses. Continue to take your vancomycin for your C diff as well. Take copies of these imaging on disc provided to follow-up visits. Prescribing a course of prednisone and Tamiflu, the latter for the influenza A diagnosed today. These are coming from [facility] Lab Data Lab results reviewed: Yes I reviewed the patient's lab results Labs: Lab Results 01/02/25 01/02/25 Range/Units 17:13 Unknown WBC 9.45 (4.50-11.00) K/uL RBC 5.29 (4.30-5.90) m/uL Hgb 15.8 (13.5-17.5) gm/dL Hct 46.8 (37.0-53.0) % MCV 89 (80-100) fL MCH 30 (26-34) pg MCHC 34 (32-36) gm/dL RDW Coeff of Rakel 14.5 (11.5-15.5) % Plt Count 230 (140-440) K/uL Neut % (Auto) 77.4 H (42.0-72.0) % Lymph % (Auto) 11.7 L (20-44) % Sierra % (Auto) 9.9 (0.0-11.0) % Eos % (Auto) 0.2 (0.0-7.0) % Baso % (Auto) 0.3 (0.0-3.0) % Neut # (Auto) 7.30 H (1.7-7.0) K/uL Lymph # (Auto) 1.10 (0.90-2.90) K/uL Sierra # (Auto) 0.90 (0.00-0.90) K/UL Eos # (Auto) 0.02 (0.00-0.50) K/uL Baso # (Auto) 0.03 (0.00-0.30) K/uL Abs Immat Gran (auto) 0.05 (0.00-0.30) K/uL Imm/Tot Granulo (auto) 0.5 % Sodium 138 (135-149) mmol/L Potassium 3.6 (3.6-5.1) mmol/L Chloride 101 (96-114) mmol/L Carbon Dioxide 26 (20-32) mmol/L Anion Gap 11 (7-15) mEq/L BUN 16 (7-30) mg/dL Creatinine 0.9 (0.5-1.5) mg/dL Estimated Creat Clear 84.44 Estimated GFR 98 ml/min Glucose 105 (60-115) mg/dL Calcium 8.4 (8.4-10.6) mg/dL Magnesium 2.2 (1.5-2.6) mg/dL C-Reactive Protein 13.9 H (0.5-1.0) mg/dL SARS-CoV-2 (PCR) Negative SARS-CoV-2 (Negative) Influenza Type A (PCR) POSITIVE PCR FLU A A (Negative) Influenza Type B (PCR) Negative PCR FLU B (Negative) RSV (PCR) Negative PCR RSV (Negative) Discharge Plan Discharge Clinical Impression: Influenza A, C. difficile colitis, Sinusitis, Dental abscess Patient Disposition: Home w/ Parent or Adult Condition: Improved Additional Instructions: Continue to focus on hydration. If you have not already, you might benefit from 12 hour pseudoephedrine which you can purchase with class a regional drivers's license [id number] for decongestion. I would also consider Neti pot nasal saline rinses. Sleep under the mist of a cool mist humidifier. You might benefit from a visit from ENT in follow-up. Your primary can refer you or I believe you could probably make an appointment yourself as well. See handout of dental clinics you might consider for these dental abscesses. Continue to take your vancomycin for your C diff as well. Take copies of these imaging on disc provided to follow-up visits. Prescribing a course of prednisone and Tamiflu, the latter for the influenza A diagnosed today. These are coming from [facility] Prescriptions: No Action gabapentin 600 mg tablet 1,200 mg PO 3XD atorvastatin 20 mg tablet DAILY acyclovir 400 mg tablet vancomycin 125 mg capsule tamsulosin 0.4 mg capsule 0.8 mg PO DAILY omeprazole 20 mg capsule,delayed release(DR/EC) 20 mg PO QAM tadalafil 10 mg tablet 10 mg PO DAILY duloxetine 60 mg capsule,delayed release(DR/EC) 120 mg PO DAILY Follow Up/Referrals: Provider,Not a Local [Primary Care Provider] - Stand Alone Forms: [employer] Info Instructions
[2025-01-02 17:14] LABS: PCR FLU A POSITIVE PCR FLU A (Negative); PCR FLU B Negative PCR FLU B (Negative); PCR RSV Negative PCR RSV (Negative); SARS PCR* Negative SARS-CoV-2 (Negative)
[2025-01-02 17:25] LABS: Basophils Absolute Auto 0.03 K/uL (0.00-0.30); Basophils Percent Auto 0.3 % (0.0-3.0); Eosinophils Absolute Auto 0.02 K/uL (0.00-0.50); Eosinophils Percent Auto 0.2 % (0.0-7.0); Hematocrit 46.8 % (37.0-53.0); Hemoglobin* 15.8 gm/dL (13.5-17.5); Immature Granulocytes Abs Auto 0.05 K/uL (0.00-0.30); Immature Granulocytes Pct Auto 0.5 %; Lymphocytes Percent Auto 11.7 % (20-44); Mean Corpuscular HGB Conc 34 gm/dL (32-36); Mean Corpuscular Hemoglobin 30 pg (26-34); Mean Corpuscular Volume 89 fL (80-100); Monocytes Percent Auto 9.9 % (0.0-11.0); Neutrophils Percent Auto 77.4 % (42.0-72.0); Platelet Count* 230 K/uL (140-440); RDW Coefficient of Variation % 14.5 % (11.5-15.5); Red Blood Count 5.29 m/uL (4.30-5.90); White Blood Count* 9.45 K/uL (4.50-11.00)
[2025-01-02 17:26] LABS: Slide Review Reflex No
[2025-01-02 17:37] LABS: Chloride* 101 mmol/L (96-114); Potassium* 3.6 mmol/L (3.6-5.1); Sodium* 138 mmol/L (135-149)
[2025-01-02 17:40] LABS: Blood Urea Nitrogen* 16 mg/dL (7-30); Creatinine* 0.9 mg/dL (0.5-1.5); Est. Creatinine Clearance* 84.44; Estimated Glomerular Filt Rate 98 ml/min
[2025-01-02 17:41] LABS: Anion Gap 11 mEq/L (7-15); Calcium* 8.4 mg/dL (8.4-10.6); Carbon Dioxide* 26 mmol/L (20-32); Glucose* 105 mg/dL (60-115); Magnesium* 2.2 mg/dL (1.5-2.6)
[2025-01-02 17:54] LABS: C Reactive Protein* 13.9 mg/dL (0.5-1.0)
== END 2025-01-02 19:06 | disposition home or self-care (01) ==
PROVIDERS: Emergency Provider Family Medicine
DX: J10.1 Influenza due to other identified influenza virus with other respiratory manifestations (principal); K04.7 Periapical abscess without sinus; K52.9 Noninfective gastroenteritis and colitis, unspecified
CPT/HCPCS: 36415; 70486; 71046; 80048; 83735; 85025; 86140; 87631; 99284

== ENCOUNTER 2025-01-12 13:56 | Emergency (ER) | payer OTHER, SELFPAY ==
[2025-01-12 14:21] VITALS: BP 168/104; PULSE 76; RESP 24; TEMP 36.7; O2SAT 96; BMI 35.9
--- NOTE | 2025-01-12 14:48 | ED.GENADULT ---
HPI - General Adult General Chief complaint: Unspecified Complaint, Adult Stated complaint: Needs antibiotic refill--C-diff, sinus infection Time Seen by Provider: 01/12/25 14:14 History of Present Illness HPI narrative: Pt was seen here recently for similar issue. Pt reports he would like a refill of his antibiotics for his sinus infection and c diff. Pt states symptoms were improving but he has not been able to have his primary care renew these prescriptions. Pt ran out of vancomycin on Tuesday. 59-year-old man presenting to the emergency department with concern of worsening sinus infection and recurrence Clostridium difficile. Seen here on January 02 after taking 3 half days of vancomycin. Diagnosed with dental abscesses, sinusitis influenza a along with the continued C difficile colitis. Was initiated on prednisone and Tamiflu and to continue vancomycin. He has completed this course of vancomycin and unable to get in yet with his primary for follow-up. Symptoms were improved but recurred noting last diarrheal stool this morning. No hematochezia noted. No measured fever. Has not been treating sinus symptoms otherwise noting that [id number] treatments tend to exacerbate his muscle cramps/fibromyalgia. Is not using nasal sprays either. Right-sided maxillary in forehead sinus discomfort is escalating. He has had some bad tasting drainage. Abdomen is intermittently tender. Did see the dentist apparently in the interim and they would not attend to imaged dental abscesses noting that he needed to clear up a sinus infection 1st nor could they see the disc of images it was sent along but apparently intend to have hardware in place to do so when Mr. Nicole returns. He does continue to smoke Related Data Home Medications ?Medication ?Instructions ?Recorded ?Confirmed acyclovir 400 mg tablet mg 01/02/25 atorvastatin 20 mg tablet mg DAILY 01/02/25 duloxetine 60 mg capsule,delayed 120 mg PO DAILY 01/02/25 01/02/25 release gabapentin 600 mg tablet 1,200 mg PO 3XD 01/02/25 01/02/25 omeprazole 20 mg capsule,delayed 20 mg PO QAM 01/02/25 01/02/25 release tadalafil 10 mg tablet 10 mg PO DAILY 01/02/25 01/02/25 tamsulosin 0.4 mg capsule 0.8 mg PO DAILY 01/02/25 01/02/25 vancomycin 125 mg capsule mg 01/02/25 Previous Rx's ?Medication ?Instructions ?Recorded mometasone 50 mcg/actuation nasal 2 spray intranasal DAILY #17 grams 01/12/25 spray prednisone 20 mg tablet 40 mg (2 x 20 mg) PO DAILY 6 days 01/12/25 #12 tabs pseudoephedrine HCl 120 mg 120 mg PO BID PRN nasal congestion 01/12/25 tablet,extended release #20 tabs Allergies Allergy/AdvReac Type Severity Reaction Status Date / Time No Known Drug Allergies Allergy Verified 01/02/25 16:22 Review of Systems Status of ROS: Reports: 6 or more systems reviewed and unremarkable except as noted in History and below [facility] Social History Smoking Status: Current some day smoker What tobacco products do you use: cigarettes Do you use any of these nicotine containing products: None How often do you have a drink containing alcohol: monthly or less How often do you have six or more drinks on one occasion: Never AUDIT-C Alcohol total score: 1 Non-prescribed substance use: denies use Exam Narrative: Exam Narrative: Pleasant. Of good energy but seems little tired. Sounds quite congested. No facial swelling or erythema but he is tender in the right maxillary and right forehead. Lungs are clear. Heart in regular rate and rhythm. Abdomen is overweight and soft and diffusely mildly tender with normal bowel sounds. Skin is warm and dry. Const: Vital Signs, click to edit/add: Vital Signs - 24 hr 01/12/25 14:21 Temperature 98.1 F Pulse Rate [Pulse Oximeter] 76 Respiratory Rate 24 Blood Pressure [Ri ght Upper Arm] 168/104 H Pulse Oximetry 96 Oxygen Delivery Me thod Room Air Documenting provider has reviewed patient's vital signs: yes Course Vital Signs Vital signs: Initial Vital Signs Temperature 98.1 F 01/12/25 14:21 Temperature Source Oral 01/12/25 14:21 Pulse Rate 76 01/12/25 14:21 Respiratory Rate 24 01/12/25 14:21 Blood Pressure 168/104 H 01/12/25 14:21 Blood Pressure Mean 125 H 01/12/25 14:21 Blood Pressure Position Sitting 01/12/25 14:21 Pulse Oximetry 96 01/12/25 14:21 Oxygen Delivery Method Room Air 01/12/25 14:21 Vital Signs Temperature 98.1 F 01/12/25 14:21 Pulse Rate 76 01/12/25 14:21 Respiratory Rate 24 01/12/25 14:21 Blood Pressure 168/104 H 01/12/25 14:21 Pulse Oximetry 96 01/12/25 14:21 Oxygen Delivery Method Room Air 01/12/25 14:21 Temperature 98.1 F 01/12/25 14:21 Pulse Rate 91 01/12/25 17:51 Respiratory Rate 18 01/12/25 17:51 Blood Pressure 154/96 H 01/12/25 17:51 Pulse Oximetry 95 01/12/25 17:51 Oxygen Delivery Method Room Air 01/12/25 17:51 Medical Decision Making MDM Narrative Medical decision making narrative: Vitals are reassuring. Will recheck for C diff as he feels he can probably give us a sample. At this is present treat accordingly. Would encourage for use of other symptom relief for may be nasal steroids doubt clear sinuses. Perhaps Neti pot as recommended before do not think this being done. I think in this case would check for C diff before proceeding with any other treatments or at least antibiotics. Rested with stable vitals in the emergency department A stool sample tested negative for Clostridium difficile. Think it is ill-advised at this point to take any other antibiotics. See patient discharge plan for further discussion I am relieved that your test came back negative for Clostridium difficile. I am sending and prescription for steroid and decongestion -- prednisone and pseudoephedrine. Also nasal steroid spray. I would like you to use this for at least 4 weeks. I think it still might be helpful for you to see ENT as discussed last time. Hopefully feeling better shortly and can deal with these dental matters. If developing a fever or marked increase in pain, please check in with your primary care provider. Medical Records Medical records reviewed: Yes I reviewed the patient's medical records Lab Data Lab results reviewed: Yes I reviewed the patient's lab results Labs: Lab Results 01/12/25 Range/Units 15:10 Stl C. diff Tox B Gene Negative (Negative) Stl C. diff [id number] PRESUMPTIVE NEGATIVE (Negative) Discharge Plan Discharge Clinical Impression: Sinusitis, Diarrhea Patient Disposition: Home, Self-Care Condition: Stable Additional Instructions: I am relieved that your test came back negative for Clostridium difficile. I am sending and prescription for steroid and decongestion -- prednisone and pseudoephedrine. Also nasal steroid spray. I would like you to use this for at least 4 weeks. I think it still might be helpful for you to see ENT as discussed last time. Hopefully feeling better shortly and can deal with these dental matters. If developing a fever or marked increase in pain, please check in with your primary care provider. Prescriptions: New prednisone 20 mg tablet 40 mg PO DAILY 6 Days Qty: 12 1RF pseudoephedrine HCl 120 mg tablet extended release 120 mg PO BID PRN (Reason: nasal congestion) Qty: 20 0RF mometasone 50 mcg/actuation spray,non-aerosol 2 spray intranasal DAILY Qty: 17 1RF Rx Instructions: administer into each nostril No Action gabapentin 600 mg tablet 1,200 mg PO 3XD atorvastatin 20 mg tablet DAILY acyclovir 400 mg tablet vancomycin 125 mg capsule tamsulosin 0.4 mg capsule 0.8 mg PO DAILY omeprazole 20 mg capsule,delayed release(DR/EC) 20 mg PO QAM tadalafil 10 mg tablet 10 mg PO DAILY duloxetine 60 mg capsule,delayed release(DR/EC) 120 mg PO DAILY Follow Up/Referrals: Provider,Not a Local [Primary Care Provider] - Stand Alone Forms: [employer] Info Instructions
--- OUTSIDE RECORDS SUMMARY | 2025-01-12 15:08 | XMS_ITS | Data Portability ---
Author Organization [place] - [facility], autoContract - [email or web address] Address [address] [place] [address] Assessment Encounter Date Assessment Date Assessment LastModified [...] Address Organization Details Recorded Time Neck pain 65671349 Active 2024 Josef Zayas DC [address], [place], [address], [facility] 15:36:51 Cervical segmental dysfunction 614879999 Active 2024 Josef Zayas DC [address], [place], [address], [facility] 15:36:51 Lumbar segmental dysfunction 592428489 Active 2024 Josef Zayas DC [address], [place], [address], [facility] 15:36:51 Thoracic segmental dysfunction 114258169 Active 2024 Josef Zayas DC [address], [place], [address], [facility] 15:36:51 Lesion of lumbar spine 056021916 Active 2024 Josef Zayas DC [address], [place], [address], [facility] 15:36:51 Problem Notes None recorded. Procedures Surgical History Date Name Laterality Status Provider Name and Address Organization Details Recorded Time 23797: Spinal manipulation , 3 to 4 regions completed Josef Zayas [place] [address], [place], [address], [facility] 11/08/2024 15:37:51 Imaging Results None recorded. Procedure Notes None recorded. Medical Equipment None Reported. Vitals None Recorded Social History None recorded. Functional Status None recorded. Mental Status None recorded. Family History Nothing Reported. Medical History No medical history recorded. Past Encounters Encounter ID Performer Location Encounter Start Date Encounter Closed Date Diagnosis/Indication Diagnosis SNOMED-CT Code Diagnosis ICD10 Code Diagnosis Note [id number] Josef Zayas [facility] [address] [place] [address] 11/08/2024 14:26:07 11/08/2024 16:12:42 Cervical segmental dysfunction 080577613 M99.01 Neck pain 54443175 M54.2 Thoracic s egmental dysfunction 952822387 M99.02 Lumbar seg mental dysfunction 154806960 M99.03 Lesion of lumbar spine 221951256 M99.01 Health Concerns Section Related Observation LastModified by Organization Detai ls LastModified Time None Recorded Concern Status LastModified by Organization Details LastModified Time None Recorded Advance Directives Directive None Recorded Payers Encounter Date Sequence Insurance Name Policy Number Policy Barron Covered Member ID Barron Member ID Guarantor Name 11/08/2024 1 [facility] [id number] Kennedy Nicole [id number] Raji Nicole Notes Date Note Type Note Provider Name and Address Organization Details Recorded Time 11/08/2024 text/html HPI - Cervical SpineReported bypatient.Location: bilateral Quality:aching Severity:moderate Duration:2 weeks Timing:gradual Alleviating Factors:ice Aggravating Factors:sitting Associated Symptoms:no numbness/tingling Sinus problems Along with C0. Josef Zayas DC [address], [place], [address], [facility] 11/08/2024 15:38:04
--- OUTSIDE RECORDS SUMMARY | 2025-01-12 15:08 | XMS_ITS | Continuity of Care Document ---
Author Organization [facility] Address [address] [place] [address] Phone Care Team Providers Care Gin Inspector Name Role Phone Silvia Sorto CNP Unavailable Unavailab le Procedures Procedure Date Offic Cons New/estab Mod-hi 60 09 Advance Directives Directive Yes / No Effective Date File Name No Information Encounters Encounter Description Practice Location Reason(s) For Visit Diagnoses Date Provider Providers Copied on Encounter Offic Cons New/estab Mod-hi 60 [facility], [address], [place], [place], [id number], [place] tel:[phone] [facility] No Information Macario Carreon. [address] [place], [address], . Referring Provider: Phoenix Li MD, [address], [place], [address]. tel:[phone] Family History Family Member Type Diagnosis Age At Onset No Information Payers Payer name Insurance type Covered republican ID Authoriza tigila(s) [facility] [id number] Social History Type Description Quantity Date Captured [...]
--- OUTSIDE RECORDS SUMMARY | 2025-01-12 15:09 | XMS_ITS | Encounter Summary ---
Author Organization [facility] Address [address] [place] [address] Care Team Providers Care Rotary Dryer Operator Name Role Phone Nelson Palacios M.D. Primary Care Provider [phone] Encounter Details Date Type Department Care Team (Late st Contact Info) Description 12/25/2024 Patient Self-Triage [facility] Symptom Baby Counselor, Provider Social History Tobacco Use Types Packs/Day Years Used Date Smoking Tobacco: Every Day Cigarettes 0.3 52.8 Started: 1972 Passive Smoke Exposure: Current Smokeless Tobacco: Never Alcohol Use Standard Drinks/Week Comments No 0 (1 standard drink = 0.6 oz pur e alcohol) [facility] Utilities Answer Date Recorded In the past 12 months has e electric, gas, oil, or water [employer] threatened to shut off services in your [...] often do you attend chur ch or latter-day services? 1 to 4 times per year 03/14/2023 Do you belong to any clubs o r organizations such as christian groups, unions, fraternal or athletic groups, or [...] Answer Date Recorded PHQ-2 Score 6 11/28/2023 [facility] - Occupational [...] your living situation today? I have a [facility] place to live 03/27/2024 Education Answer Date Recorded What is the highest level of school you have completed or the highest degree you have received? Associate degree: academic program 09/18/2019 Sex and Gender Information Value Date Recorded Sex Assigned at Male 09/29/2021 9:36 AM COMMANDING OFFICER GARAGE Legal Sex Male 10:27 AM COMMANDING OFFICER GARAGE Gender Identity Male 09/29/2021 9:36 AM COMMANDING OFFICER GARAGE Sexual Orientation Straight 11/15/2019 7: 41 PM COMMANDING OFFICER GARAGE documented as of this encounter Plan of Treatment Upcoming Encounters Date Type Department Care Team (Late st Contact Info) Description 02/25/2025 3:20 PM CDT Comprehensive Visit Department of Family Medicine, [facility], in [place], [place] [address] [place] [phone] Nelson Palacios M.D. [address] [place] [phone] documented as of this encounter Visit Diagnoses Not on filedocumented in this encounter Additional Health Concerns Assessment Noted Time PHQ-9 Depression Total Score: 25 024 2:42 PM COMMANDING OFFICER GARAGE documented as of this encounter Care Teams Rotary Dryer Operator Relationship Specialty Start Date End Date Nelson Palacios M.D. [address] [place] [address] [place] [phone] PCP - General 12/20/22 documented as of this encounter
--- OUTSIDE RECORDS SUMMARY | 2025-01-12 15:09 | XMS_ITS | Encounter Summary ---
Author Organization [facility] Address [address] [place] [address] Care Team Providers Care Bioinformatics Programmer Name Role Phone Nelson Palacios M.D. Primary Care Provider [phone] Encounter Details Date Type Department Care Team (Latest Contact Info) Description 12/28/2024 8:59 AM HAND EXPANSION ENVELOPE MAKER - 12/28/2024 11:59 PM [facility] Hospital Encounter Department of Laboratory Medicine in [place], [place] [address] [place] [phone] Ronald Koenig APRN, C.N.P. [address] [place] [phone] Diarrhea From Antibiotic Discharge Disposition: Home or Self Care Social History Tobacco Use Types Packs/Day Years Used Date Smoking Tobacco: Every Day Cigarettes 0.5 79.6 Started: 1972 Passive Smoke Exposure: Current Smokeless Tobacco: Never Alcohol Use Standard Drinks/Week Comments Yes 8 (1 standard drink = 0.6 oz pur e alcohol) [facility] Utilities Answer Date Recorded In the past [...] How often do you attend chur or latter-day services? 1 to 4 times per year 03/14/2023 Do you belong to any clubs o r organizations such as druze groups, unions, fraternal or athletic groups, or [...] 5 12/27/2024 [facility] - [...] your living situation today? I have a [facility] place to live 03/27/2024 Education Answer Date Recorded What is the highest level of school you have completed or the highest degree you have received? Associate degree: academic program 09/18/2019 Sex and Gender Information Value Date Recorded Sex Assigned at Male 09/29/2021 9:36 AM HAND EXPANSION ENVELOPE MAKER Legal Sex Male 10:27 AM HAND EXPANSION ENVELOPE MAKER Gender Identity Male 09/29/2021 9:36 AM HAND EXPANSION ENVELOPE MAKER Sexual Orientation Straight 11/15/2019 7: 41 PM HAND EXPANSION ENVELOPE MAKER documented as of this encounter Medications at [...] Department of Family Medicine, [facility], in [place], [place] [address] [place] [phone] Nelson Palacios M.D. [address] [place] [phone] documented as of this encounter Procedures Procedure Name Priority Date/Time Associated Diagnosis Comments CBC WITH DIFFERENTIAL, B Routine 12/28/2024 9:08 AM HAND EXPANSION ENVELOPE MAKER Diarrhea From Antibiotic BASIC METABOLIC PANEL, S/P Routine 12/28/2024 9:08 AM HAND EXPANSION ENVELOPE MAKER Diarrhea From Antibiotic documented in this encounter Results * (ABNORMAL) Basic Metabolic Panel (12/28/2024 9:08 AM HAND EXPANSION ENVELOPE MAKER) Potassium, P 3.9 3.6 - 5.2 mmol/L 12/28/2024 9:35 AM HAND EXPANSION ENVELOPE MAKER [facility] Sodium, P 142 135 - 145 mmol/L 12/28/2024 9:35 AM HAND EXPANSION ENVELOPE MAKER [facility] Chloride, P 107 98 - 107 mmol/L 12/28/2024 9:35 AM HAND EXPANSION ENVELOPE MAKER [facility] Bicarbonate, P 25 22 - 29 mmol/L 12/28/2024 9:35 AM HAND EXPANSION ENVELOPE MAKER [facility] Anion Gap, P 10 7 - 15 12/28/2024 9:35 AM HAND EXPANSION ENVELOPE MAKER [facility] BUN (Blood Urea Nitrogen), P 10 8 - 24 mg/dL 12/28/2024 9:35 AM HAND EXPANSION ENVELOPE MAKER [facility] Creatinine 0.87 0.74 - 1.35 mg/dL 12/28/2024 9:35 AM HAND EXPANSION ENVELOPE MAKER [facility] Estimated GFR (eGFR) >90 >=60 mL/min/BSA 12/28/2024 9:35 AM HAND EXPANSION ENVELOPE MAKER [facility] Comment: Estimated GFR calculated using the 2020 CKD_EPI creatinine equation. Calcium, Total, P 8.4(L) 8.8 - 10.2 mg/dL 12/28/2024 9:35 AM HAND EXPANSION ENVELOPE MAKER [facility] Glucose, P 102 70 - 140 mg/dL 12/28/2024 9:35 AM HAND EXPANSION ENVELOPE MAKER [facility] Blood (Blood, Venous) 12/28/2024 9:08 AM HAND EXPANSION ENVELOPE MAKER 12/28/2024 9:14 AM HAND EXPANSION ENVELOPE MAKER us Ronald Koenig APRN, C.N.P. LAB BLOOD ADD-ON Fi nal Result [facility] [address] [place] [address], [facility] in [place] [address] [place] [phone] * (ABNORMAL) CBC with Differential, Blood (12/28/2024 9:08 AM HAND EXPANSION ENVELOPE MAKER) Pathologist [facility] Hemoglobin 15.6 13.2 - 16.6 g/dL 12/28/2024 9:21 AM HAND EXPANSION ENVELOPE MAKER [facility] Hematocrit 46.2 38.3 - 48.6 % 12/28/2024 9:21 AM HAND EXPANSION ENVELOPE MAKER [facility] Erythrocytes 5.16 4.35 - 5.65 x10(12)/L 12/28/2024 9:21 AM HAND EXPANSION ENVELOPE MAKER [facility] MCV 89.5 78.2 - 97.9 fL 12/28/2024 9:21 AM HAND EXPANSION ENVELOPE MAKER [facility] RBC Distrib Width 14.6(H) 11.8 - 14.5 % 12/28/2024 9:21 AM HAND EXPANSION ENVELOPE MAKER [facility] Platelet Count 315 135 - 317 x10(9)/L 12/28/2024 9:21 AM HAND EXPANSION ENVELOPE MAKER [facility] Leukocytes 8.7 3.4 - 9.6 x10(9)/L 12/28/2024 9:21 AM HAND EXPANSION ENVELOPE MAKER [facility] Neutrophils 5.09 1.56 - 6.45 x10(9)/L 12/28/2024 9:20 AM HAND EXPANSION ENVELOPE MAKER [facility] Lymphocytes 2.52 0.95 - 3.07 x10(9)/L 12/28/2024 9:21 AM HAND EXPANSION ENVELOPE MAKER [facility] Monocytes 0.74 0.26 - 0.81 x10(9)/L 12/28/2024 9:21 AM HAND EXPANSION ENVELOPE MAKER [facility] Eosinophils 0.26 0.03 - 0.48 x10(9)/L 12/28/2024 9:21 AM HAND EXPANSION ENVELOPE MAKER [facility] Basophils 0.08 0.01 - 0.08 x10(9)/L 12/28/2024 9:21 AM HAND EXPANSION ENVELOPE MAKER [facility] Blood (Blood, Venous) 12/28/2024 9:08 AM HAND EXPANSION ENVELOPE MAKER 12/28/2024 9:14 AM HAND EXPANSION ENVELOPE MAKER us Ronald Koenig APRN, C.N.P. LAB BLOOD ADD-ON Fi nal Result [facility] [address] [address], [place] [facility] in [place] [address] [place] [phone] documented in this encounter Visit Diagnoses Diagnosis Diarrhea From Antibiotic documented in this encounter Additional Health Concerns Infection Onset Date Last Indicated Resolved Time C. difficile 12/28/2024 12/28/2024 Assessment Noted Time PHQ-9 Depression Total Score: 22 025 3:56 PM HAND EXPANSION ENVELOPE MAKER documented as of this encounter Care Teams Bioinformatics Programmer Relationship Specialty Start Date End Date Nelson Palacios M.D. [address] [place] [phone] PCP - General 12/20/22 documented as of this encounter
--- OUTSIDE RECORDS SUMMARY | 2025-01-12 15:09 | XMS_ITS | Encounter Summary ---
Author Organization [facility] Address [address] [place] [address] Care Team Providers Care Lab Technician Name Role Phone Nelson Palacios M.D. Primary Care Provider [phone] Encounter Details Date Type Department Care Team (Late st Contact Info) Description 12/28/2024 Results Follow-Up Department of Family Medicine, [facility], in [place], [place] [address] [place] [phone] Ronald Koenig APRN, C.N.P. [address] [place] [phone] GI Pathogen Panel, PCR, Feces Social History Tobacco Use Types Packs/Day Years Used Date Smoking Tobacco: Every Day Cigarettes 0.5 79.6 Started: 1972 Passive Smoke Exposure: Current Smokeless Tobacco: Never Alcohol Use Standard Drinks/Week Comments Yes 8 (1 standard drink = 0.6 oz pur e alcohol) [facility] Utilities Answer Date Recorded In the past [...] How often do you attend chur or orthodoxy services? 1 to 4 times per year 03/14/2023 Do you belong to any clubs o r organizations such as jainism groups, unions, fraternal or athletic groups, or [...] Answer Date Recorded PHQ-2 Score 5 12/27/2024 [facility] - Occupational Stress [...] your living situation today? I have a [facility] place to live 03/27/2024 Education Answer Date Recorded What is the highest level of school you have completed or the highest degree you have received? Associate degree: academic program 09/18/2019 Sex and Gender Information Value Date Recorded Sex Assigned at Male 09/29/2021 9:36 AM STEAM TENDER Legal Sex Male 10:27 AM STEAM TENDER Gender Identity Male 09/29/2021 9:36 AM STEAM TENDER Sexual Orientation Straight 11/15/2019 7: 41 PM STEAM TENDER documented as of this encounter Plan of Treatment Upcoming Encounters Date Type Department Care Team (Late st Contact Info) Description 02/25/2025 3:20 PM CDT Comprehensive Visit Department of Family Medicine, [facility], in [place], [place] [address] [place] [phone] Nelson Palacios M.D. [address] [place] [phone] documented as of this encounter Visit Diagnoses Not on filedocumented in this encounter Additional Health Concerns Infection Onset Date Last Indicated Resolved Time C. difficile 12/28/2024 12/28/2024 Assessment Noted Time PHQ-9 Depression Total Score: 22 025 3:56 PM STEAM TENDER documented as of this encounter Care Teams Lab Technician Relationship Specialty Start Date End Date Nelson Palacios M.D. [address] [place] [phone] PCP - General 12/20/22 documented as of this encounter
--- OUTSIDE RECORDS SUMMARY | 2025-01-12 15:09 | XMS_ITS | Clinical Summary ---
Author Organization [facility] Address [address] [place] [address] Care Team Providers Care Barn Boss Name Role Phone Nelson Palacios M.D. Primary Care Provider [phone] Source Comments Patient records contain information from all sites at [facility]. For routine questions regarding patient records, call [phone] during business hours, M-F 8:00 AM - 5:00 PM Central Time. Record requests for emergency care only can be directed to [phone] at any time.[facility] Allergies No known active allergies Medications * [...] mouth daily. 90 tablet 12/28/19 25 Active acetylcysteine (NAC) 600 mg capsule Take 2 capsules by mouth 2 (two) times a day. 01/26/20 24 025 Discontinu ed(Therapy completed) cyclobenzaprine (FLEXERIL) 10 mg tabletIndicatio ns:Fibromyalgia ,Pain Low Back Chronic TAKE 1 TABLET 3 TIMES A DAYAS NEEDED FOR MUSCLE SPASM (FIBROMYALGIA) 90 tablet 03/05/20 24 025 Discontinu ed(Therapy completed) cephalexin (KEFLEX) 500 mg capsuleIndicati ons:Infection Skin Take 1 capsule (500 mg total) by mouth 3 (three) times a day. 30 capsule 03/27/20 24 025 Discontinu ed(Therapy completed) atorvastatin (LIPITOR) 20 mg tabletIndicatio ns:Hyperlipidem ia Mixed Take 1 tablet (20 mg total) by mouth daily. 90 tablet 3 04/03/20 24 025 Discontinu ed(Reorder ) acyclovir (ZOVIRAX) 400 mg tablet Take 1 tablet (400 mg total) by mouth 4 (four) times a day. 28 tablet 1 06/03/20 24 025 Discontinu ed(Reorder ) sulfamethoxazol e-trimethoprim (Bactrim DS) 800-160 mg per tabletIndicatio ns:Sinusitis Acute Take 1 tablet by mouth 2 (two) times a day. 14 tablet 11/30/19 25 025 Discontinu ed(Therapy completed) vancomycin (Vancocin) 125 mg capsuleIndicati ons:Enterocolit is Due To Clostridium Difficile Not Specified As Recurrent Take 1 capsule (125 mg total) by mouth 4 (four) times a day for 10 days. 40 capsule 12/28/19 25 025 Active Problems Problem Noted Date Diagnosed Date Bipolar II Disorder 11/28/2023 Atherosclerosis Of [place] Ar teries Of Extremities With Intermittent Claudication [...] Moderate 01/23/2009 Overview (09/19/2017): Overview: Notes from [facility] clinic: Abilify and Effexor were tried and not helpful. meds that were effective as of his last visit at [place] on 01/24/10 were: Bupropion XL 300mg, cyjmbalta 60mg, Gabapentin 1200mg tid, lithium 300mg tid, and trazodone 200mg at HS. From Dr. Cih's Nov 2010 intake: The patient has had [...] (11/19/2021): Added automatically from request for surgery [id number] Laceration Extensor Muscle F ascia And Tendon Left Index Finger At Wrist And Hand Level Subsequent 02/16/2019 07/15/2021 Overview (02/16/2019): Added automatically from request for surgery [id number] [facility] 01/05/2017 019 Follow Up Examination Postoperative Visit 07/15/2021 Encounters Date Type Department Care Team Description 12/28/2024 8:59 AM PHARMACY CASHIER - 12/28/2024 11:59 PM PHARMACY CASHIER Hospital Encounter Department of Laboratory Medicine in [place] [address] [place] [phone] Ronald Koenig APRN, C.N.P. Diarrhea From Antibiotic Discharge Disposition: Home or Self Care 12/28/2024 8:59 AM PHARMACY CASHIER - 12/28/2024 11:59 PM PHARMACY CASHIER Hospital Encounter Department of Laboratory Medicine in [place] [phone] Ronald Koenig APRN, C.N.PVernell Diarrhea From Antibiotic Discharge Disposition: Home or Self Care 12/28/2024 8:30 AM PHARMACY CASHIER Office Visit Department of Family Medicine, [facility], in [address] [phone] Westley Walker P.A.-C., Ronald Love APRN C.N.P. Enterocolitis Due To Clostridium Difficile Not Specified As Recurrent (Primary Dx); Sinusitis Acute; Chronic Obstructive Pulmonary Disease (HCC); Hyperlipidemia Mixed; Herpes Genitalis 12/28/2024 Results Follow-Up Department of Family Medicine, [facility], in [address] [phone] Ronald Koenig APRN, C.N.P. GI Pathogen Panel, PCR, Feces 12/25/2024 Patient Self-Triage [facility] CARE Symptom Demolition Crane Operator, Provider 11/12/2024 9:00 AM PHARMACY CASHIER Telemedicine [facility] in [place], [place] [address] [place] [phone] Rose Crabtree P.A.-C. Sinusitis Acute (Primary Dx); Issue Renewal Prescription from Last 3 Months Immunizations Immunization Administration Dates Next Due DTaP (Infanrix, Tripedia) 08/23/2008 Influenza TIV (IM) 08/17/2012 Influenza, Seasonal, Injectable 08/14/2012,08/16,08/17/2010 Influenza, Unspecified 08/17/2010 PCV20 06/24/2022 PPSV23 11/20/2019 RZV (SHINGRIX) 07/20/2021 SARS-COV-2 (COVID-19) - JANS AXEL (J&J)(Discontinued) 02/12/2021 SARS-COV-2 (COVID-19) - MODE RNA [...] = 0.6 oz pur e alcohol) [facility] Utilities Answer Date Recorded In the past 12 months has e [employer], gas, oil, or water [employer] threatened to shut off services in your [...] any clubs o r organizations such as presybeterian groups, unions, fraternal or athletic groups, or [...] your living situation today? I have a [facility] place to live 03/27/2024 Education Answer Date Recorded What is the highest level of school you have completed or the highest degree you have received? Associate degree: academic program 09/18/2019 Sex and Gender Information Value Date Recorded Sex Assigned at Male 09/29/2021 9:36 AM PHARMACY CASHIER Legal Sex Male 10:27 AM PHARMACY CASHIER Gender Identity Male 09/29/2021 9:36 AM PHARMACY CASHIER Sexual Orientation Straight 11/15/2019 7: 41 PM PHARMACY CASHIER Last Filed Vital Signs Vital Sign Reading Time Taken Comments Blood Pressure 150/93 12/28/2024 8:36 AM PHARMACY CASHIER Pulse 71 12/28/2024 8:36 AM PHARMACY CASHIER Temperature 36.1 C (97 F) 12/28/2024 8:28 AM PHARMACY CASHIER Respiratory Rate 20 11/02/2022 1:52 PM PHARMACY CASHIER Oxygen Saturation 95% 01/11/2022 3:20 PM PHARMACY CASHIER Inhaled Oxygen Concentration - - Weight 113 kg (249 lb 1.9 oz) 12/28/2024 8:28 AM PHARMACY CASHIER Height 170.8 cm (5' 7.24) 12/28/2024 8:28 AM CS T Body Mass Index 38.74 12/28/2024 8:28 AM PHARMACY CASHIER Plan of Treatment Upcoming Encounters Date Type Department Care Team (Late st Contact Info) Description 02/25/2025 3:20 PM CDT Comprehensive Visit Department of Family Medicine, [facility], in [place], [place] [address] [facility] [place] [phone] Nelson Palacios M.D. [address] [place] [phone] Health Maintenance Due Date Last Done Comments CT Colonography 1964 Cologuard 1965 FIT 1964 Lung Cancer Screening 09/10/2012 09/10/2011 Zoster Vaccines (2 of 2) 09/14/2021 07/20/2021 RSV vaccine - (32-36 weeks) or 60+ years (1 - Risk 60-74 years 1-dose series) 2024 COVID-19 Vaccine ( season) 2024 09/27/2023, 12/18/2021, 02/12/2021 Tobacco Cessation [...] history exists Hepatitis C Screening Completed 11/20/2019 Hepatitis B Screening Discontinued 07/20/2021 Pneumococcal vaccine (50+ years) Completed 06/24/2022, 11/20/2019 Depression Screening (Annual PHQ-2) Completed 12/27/2024 Hepatitis B Vaccines Aged Out No long er eligible based on patient's age to complete this topic IPV Vaccines Aged Out No longer eligi ble based on patient's age to complete this topic Medical Devices Implanted Type Area Software Intern Device Identifier Shelf Expiration Date Model / Serial / Lot Hardware E.G. Pins/Screws/ Rods Hardware e.g. pins/screws /rods Right: Ankle Lens Tcn [id number] +22.5d - [id number] - [id number] Implanted:Qt y: 1 on 01/11/2022 by Joe Sanders M.D. at [facility] Ocular Lens Left: Eye [employer] (Previously CODY) [id number] 07/03/2025 [id number] / [id number] / Procedures Procedure Name Priority Date/Time Associated Diagnosis Comments GI PATHOGEN PANEL, PCR, F Routine 12/28/2024 9:25 AM PHARMACY CASHIER Diarrhea From Antibiotic BASIC METABOLIC PANEL, S/P Routine 12/28/2024 9:08 AM PHARMACY CASHIER Diarrhea From Antibiotic CBC WITH DIFFERENTIAL, B Routine 12/28/2024 9:08 AM PHARMACY CASHIER Diarrhea From Antibiotic LIPID PANEL, S Routine 03/23/2023 6:08 PM CDT Hyperlipidemia Mixed HEPATITIS B SURFACE ANTIGEN Routine 07/20/2021 3:58 PM CDT Screening For Venereal Disease HCV AB SCRN W/REFLEX TO HCV PCR, S Routine 11/20/2019 3:40 PM PHARMACY CASHIER Health Maintenance Examination Adult from Last 3 Months or Most Recently Relevant to Health Maintenance Results * (ABNORMAL) GI Pathogen Panel, PCR, Feces (12/28/2024 9:25 AM PHARMACY CASHIER) Specimen Source STOOL 11:17 AM PHARMACY CASHIER [facility] Campylobacter species Negative Negative 12/28/2024 11:17 AM PHARMACY CASHIER [facility] C. difficile toxin Positive(A) Negative 12/28 11:17 AM PHARMACY CASHIER [facility] Comment: A positive C. difficile result may reflect asymptomatic carriage or C. difficile-associated diarrhea. Plesiomonas shigelloides Negative Negative 12/28/2024 11:17 AM PHARMACY CASHIER [facility] Salmonella species Negative Negative 2024 11:17 AM PHARMACY CASHIER [facility] Vibrio species Negative Negative 12/28/2024 11:17 AM PHARMACY CASHIER [facility] Vibrio cholerae Negative Negative 11:17 AM PHARMACY CASHIER [facility] Yersinia species Negative Negative 12/28/19 11:17 AM PHARMACY CASHIER [facility] Enteroaggregative E. coli (EAEC) Negative Negative 12/28/2024 11:17 AM PHARMACY CASHIER [facility] Enteropathogenic E. coli (EPEC) Negative Negative 12/28/2024 11:17 AM PHARMACY CASHIER [facility] Enterotoxigenic E. coli (ETEC) Negative Negative 12/28/2024 11:17 AM PHARMACY CASHIER [facility] Shiga toxin producing E. coli Negative Negative 12/28/2024 11:17 AM PHARMACY CASHIER [facility] Shigella/Enteroinvas jamey E. coli Negative Negative 12/28/2024 11:17 AM PHARMACY CASHIER [facility] Cryptosporidium species Negative Negative 12/28/2024 11:17 AM PHARMACY CASHIER [facility] Cyclospora cayetanensis Negative Negative 12/28/2024 11:17 AM PHARMACY CASHIER [facility] Entamoeba histolytica Negative Negative 12/28/2024 11:17 AM PHARMACY CASHIER [facility] Giardia Negative Negative 12/28/2024 11:17 AM PHARMACY CASHIER [facility] Adenovirus F40/41 Negative Negative 025 11:17 AM PHARMACY CASHIER [facility] Astrovirus Negative Negative 12/28/2024 11:17 AM PHARMACY CASHIER [facility] Norovirus GI/GII Negative Negative 12/28/19 11:17 AM PHARMACY CASHIER [facility] Rotavirus Ag, F Negative Negative 11:17 AM PHARMACY CASHIER [facility] Sapovirus Negative Negative 12/28/2024 11:17 AM PHARMACY CASHIER [facility] Comment: ----ADDITIONAL INFORMATION---- This assay is performed using the FDA-cleared Venturi WirelessArray GI Panel ([employer] Semi-Urgent This is a semi-urgent result(MOTA) [facility] Stool (Stool) 12/28/2024 9:2 5 AM PHARMACY CASHIER 12/28/2024 9:25 AM PHARMACY CASHIER us Ronald Koenig APRN, C.N.P. LAB MICROBIOLOGY - GENERAL ORDERABLES Final Result [facility] [address] [place] [address], [facility] [address] [place] [address] * (ABNORMAL) CBC with Differential, Blood (12/28/2024 9:08 AM PHARMACY CASHIER) Hemoglobin 15.6 13.2 - 16.6 g/dL 12/28/2024 9:21 AM PHARMACY CASHIER [facility] Hematocrit 46.2 38.3 - 48.6 % 12/28/2024 9:21 AM PHARMACY CASHIER [facility] Erythrocytes 5.16 4.35 - 5.65 x10(12)/L 12/28/2024 9:21 AM PHARMACY CASHIER [facility] MCV 89.5 78.2 - 97.9 fL 12/28/2024 9:21 AM PHARMACY CASHIER [facility] RBC Distrib Width 14.6(H) 11.8 - 14.5 % 12/28/2024 9:21 AM PHARMACY CASHIER [facility] Platelet Count 315 135 - 317 x10(9)/L 12/28/2024 9:21 AM PHARMACY CASHIER [facility] Leukocytes 8.7 3.4 - 9.6 x10(9)/L 12/28/2024 9:21 AM PHARMACY CASHIER [facility] Neutrophils 5.09 1.56 - 6.45 x10(9)/L 12/28/2024 9:20 AM PHARMACY CASHIER [facility] Lymphocytes 2.52 0.95 - 3.07 x10(9)/L 12/28/2024 9:21 AM PHARMACY CASHIER [facility] Monocytes 0.74 0.26 - 0.81 x10(9)/L 12/28/2024 9:21 AM PHARMACY CASHIER [facility] Eosinophils 0.26 0.03 - 0.48 x10(9)/L 12/28/2024 9:21 AM PHARMACY CASHIER [facility] Basophils 0.08 0.01 - 0.08 x10(9)/L 12/28/2024 9:21 AM PHARMACY CASHIER [facility] Blood (Blood, Venous) 12/28/2024 9:08 AM PHARMACY CASHIER 12/28/2024 9:14 AM PHARMACY CASHIER Ronald Koenig APRN C.N.PVernell LAB BLOOD ADD-ON Fi nal Result [facility] [address] [place] [address], [facility] in [place] [address] [place] [address] * (ABNORMAL) Basic Metabolic Panel (12/28/2024 9:08 AM PHARMACY CASHIER) Potassium, P 3.9 3.6 - 5.2 mmol/L 12/28/2024 9:35 AM PHARMACY CASHIER [facility] Sodium, P 142 135 - 145 mmol/L 12/28/2024 9:35 AM PHARMACY CASHIER [facility] Chloride, P 107 98 - 107 mmol/L 12/28/2024 9:35 AM PHARMACY CASHIER [facility] Bicarbonate, P 25 22 - 29 mmol/L 12/28/2024 9:35 AM PHARMACY CASHIER [facility] Anion Gap, P 10 7 - 15 12/28/2024 9:35 AM PHARMACY CASHIER [facility] BUN (Blood Urea Nitrogen), P 10 8 - 24 mg/dL 12/28/2024 9:35 AM PHARMACY CASHIER [facility] Creatinine 0.87 0.74 - 1.35 mg/dL 12/28/2024 9:35 AM PHARMACY CASHIER [facility] Estimated GFR (eGFR) >90 >=60 mL/min/BSA 12/28/2024 9:35 AM PHARMACY CASHIER [facility] Comment: Estimated GFR calculated using the 2020 CKD_EPI creatinine equation. Calcium, Total, P 8.4(L) 8.8 - 10.2 mg/dL 12/28/2024 9:35 AM PHARMACY CASHIER [facility] Glucose, P 102 70 - 140 mg/dL 12/28/2024 9:35 AM PHARMACY CASHIER [facility] Blood (Blood, Venous) 12/28/2024 9:08 AM PHARMACY CASHIER 12/28/2024 9:14 AM PHARMACY CASHIER us Ronald Koenig APRN C.N.P. LAB BLOOD ADD-ON Fi nal Result [facility] [address] [facility] [place] [address], [facility] in [place] [address] [place] [address] * Lipid Panel (03/23/2023 6:08 PM CDT) [...] ADD-ON Final Re sult Performing Organization Address [facility] Co de Phone Number [facility] [address] [place] [address], [facility] in [place] [address] [place] [address] * Hepatitis B Surface Antigen (07/20/2021 3:58 PM CDT) HBs Antigen, S Nonreactive Nonreactive 07/21/20 2:37 AM CDT [facility] Comment: Biotin has been identified by the nut threader as a potential interfering substance. Higher concentrations of biotin may be found in multivitamins, hair/nail supplements, and workout supplements. If the result does not match clinical observations, repeat testing after patient refrains from the use of supplements for at least 12 hours. Blood (Blood, Venous) 07/20/2021 3:58 PM CDT 07/20/2021 9:09 PM CDT us Paco Kamara M.D. LAB MICROBIOLOGY - BLOOD ORDERAB LES Final Result Performing Organization Address [facility] Co de Phone Number [facility] [address] [place] [address], [facility] in [address] [address] * HCV Ab Scrn w/Reflex to HCV PCR, Serum (11/20/2019 3:40 PM PHARMACY CASHIER) HCV Ab Screen, S Negative Negative 11/21/19 20 3:42 AM PHARMACY CASHIER E[facility] Comment: Biotin has been identified by the nut threader as a potential interfering substance. Higher concentrations of biotin may be found in multivitamins, hair/nail supplements, and workout supplements. If the result does not match clinical observations, repeat testing after patient refrains from the use of supplements for at least 12 hours. Blood (Blood, Venous) 11/20/2019 3:40 PM PHARMACY CASHIER 11/20/2019 9:47 PM PHARMACY CASHIER Narrative [facility] - 11/21/2019 3:42 AM PHARMACY CASHIER Specimen Information: Specimen ID: [id number] Specimen Type: Blood Specimen Collection Start Date: 11/20/2019 3:40 PM Specimen Received Date: 11/20/2019 9:47 PM Specimen ID: [id number] Specimen Type: Blood Specimen Collection Start Date: 11/20/2019 3:40 PM Specimen Received Date: 11/20/2019 9:46 PM Paco Kamara M.D. LAB MICROBIOLOGY - BLOOD ORDERAB LES Final Result [facility] [address] [place] [address], [facility] in [address] [address] from Last 3 Months or Most Recently Relevant to Health Maintenance Additional Health Concerns Infection Onset Date Last Indicated C. difficile 12/28/2024 12/28/2024 Insurance [facility] Care Teams Barn Boss Relationship Specialty Start Date End Date Nelson Palacios M.D. LILII: [id number] [address] [place] [address] [facility] - General 12/20/22
--- OUTSIDE RECORDS SUMMARY | 2025-01-12 15:09 | XMS_ITS | Encounter Summary ---
Author Organization [facility] Address [address] [place] [address] Care Team Providers Care Software Project Lead Name Role Phone Nelson Palacios M.D. Primary Care Provider [phone] Reason for Visit * Reason Comments Diarrhea Persistent diarrhea, ongoing since before xmas Sinus Symptoms Ongoing symptoms sin ce before xmas * Appointment Request (Routine) - Closed Specialty Diagnoses / Procedures Referred By Se miller Referred To Contact Family Medicine Referral ID Status Reason Start Date Expiration Date Visits Re quested Visits Authorized [id number] Closed 12/25/2024 03/27/2026 1 1 Encounter Details Date Type Department Care Team (Latest Contact Info) Description 12/28/2024 8:30 AM SOFTWARE PROGRAMMER Office Visit Department of Family Medicine, [facility], in [place], [place] [address] [place] [phone] Westley Walker, PVernellA.-C., P.A. [address] [place] [phone] Ronald Koenig APRN, C.N.P. [address] [place] [address] Enterocolitis Due To Clostridium Difficile [...] 0.6 oz pur e alcohol) [facility] Utilities Answer Date Recorded In the [...] week 03/14/2023 How often do you attend [facility] center or adventist services? 1 to 4 times per year 03/14/2023 Do you belong to any clubs o r organizations such as lutheran groups, unions, fraternal or athletic groups, or [...] Answer Date Recorded PHQ-2 Score 5 12/27/2024 [facility] - Occupational Stress Questionnaire Answer Date [...] your living situation today? I have a [facility] place to live 03/27/2024 Education Answer Date Recorded What is the highest level of school you have completed or the highest degree you have received? Associate degree: academic program 09/18/2019 Sex and Gender Information Value Date Recorded Sex Assigned at Male 09/29/2021 9:36 AM SOFTWARE PROGRAMMER Legal Sex Male 10:27 AM SOFTWARE PROGRAMMER Gender Identity Male 09/29/2021 9:36 AM SOFTWARE PROGRAMMER Sexual Orientation Straight 11/15/2019 7: 41 PM SOFTWARE PROGRAMMER documented as of this encounter Last Filed Vital Signs Vital Sign Reading Time Taken Comments Blood Pressure 150/93 12/28/2024 8:36 AM SOFTWARE PROGRAMMER Pulse 71 12/28/2024 8:36 AM SOFTWARE PROGRAMMER Temperature 36.1 C (97 F) 12/28/2024 8:28 AM SOFTWARE PROGRAMMER Respiratory Rate - - Oxygen Saturation - - Inhaled Oxygen Concentration - - Weight 113 kg (249 lb 1.9 oz) 12/28/2024 8:28 AM SOFTWARE PROGRAMMER Height 170.8 cm (5' 7.24) 12/28/2024 8:28 AM CS T Body Mass Index 38.74 12/28/2024 8:28 AM SOFTWARE PROGRAMMER documented in this encounter Patient Instructions * Patient Instructions* Ronald Koenig APRN, C.N.P. - 12/28/2024 8:30 AM SOFTWARE PROGRAMMER Images from the original note were not [...] bacteria. Still, most people seen in the [facility] for upper respiratory infection or sinusitis symptoms [...] and replace them as recommended by the mammal control agent. Note: Having your humidity too high (more [...] help open sinuses and allow easier breathing. Axjo-fxl-fetarxo treatments* In addition to the previous suggestions, you may get relief for nasal and sinus obstruction or discomfort by taking non-prescription, eted-dcu-fgyrlbt (OTC) medications. Many OTC medications combine a [...] diagnosis or treatment: National Institutes of Health ([employer]): [employer] U.S. Department of Health and Human Services: healthfinder This material is for your education and information only. This content does not replace medical advice, diagnosis or treatment. New medical research may change this information. If you have questionsabout a medical condition, always talk with your health care provider. ?? 2008 [facility] [employer] ([facility]). All rights reserved. [id number] WARE PROGRAMMER WARE PROGRAMMER * Attachments The following attachments cannot be [...] Appropriate mood and affect, Normal judgment. Skin: [place], warm, dry and without rashes. Neuro: Sensation [...] to face andface to face patient care. WARE PROGRAMMER documented in this encounter Plan of Treatment Upcoming Encounters Date Type Department Care Team (Late st Contact Info) Description 02/25/2025 3:20 PM CDT Comprehensive Visit Department of Family Medicine, [facility], in [address] [phone] Nelson Palacios M.D. [address] [place] [phone] documented as of this encounter Results * (ABNORMAL) GI Pathogen Panel, PCR, Feces (12/28/2024 9:25 AM SOFTWARE PROGRAMMER) Specimen Source STOOL 11:17 AM SOFTWARE PROGRAMMER [facility] Campylobacter species Negative Negative 12/28/2024 11:17 AM SOFTWARE PROGRAMMER [facility] C. difficile toxin Positive(A) Negative 12/28 11:17 AM SOFTWARE PROGRAMMER [facility] Comment: A positive C. difficile result may reflect asymptomatic carriage or C. difficile-associated diarrhea. Plesiomonas shigelloides Negative Negative 12/28/2024 11:17 AM SOFTWARE PROGRAMMER [facility] Salmonella species Negative Negative 2024 11:17 AM SOFTWARE PROGRAMMER [facility] Vibrio species Negative Negative 12/28/2024 11:17 AM SOFTWARE PROGRAMMER [facility] Vibrio cholerae Negative Negative 11:17 AM SOFTWARE PROGRAMMER [facility] Yersinia species Negative Negative 12/28/19 11:17 AM SOFTWARE PROGRAMMER [facility] Enteroaggregative E. coli (EAEC) Negative Negative 12/28/2024 11:17 AM SOFTWARE PROGRAMMER [facility] Enteropathogenic E. coli (EPEC) Negative Negative 12/28/2024 11:17 AM SOFTWARE PROGRAMMER [facility] Enterotoxigenic E. coli (ETEC) Negative Negative 12/28/2024 11:17 AM SOFTWARE PROGRAMMER [facility] Shiga toxin producing E. coli Negative Negative 12/28/2024 11:17 AM SOFTWARE PROGRAMMER [facility] Shigella/Enteroinvas jamey E. coli Negative Negative 12/28/2024 11:17 AM SOFTWARE PROGRAMMER [facility] Cryptosporidium species Negative Negative 12/28/2024 11:17 AM SOFTWARE PROGRAMMER [facility] Cyclospora cayetanensis Negative Negative 12/28/2024 11:17 AM SOFTWARE PROGRAMMER [facility] Entamoeba histolytica Negative Negative 12/28/2024 11:17 AM SOFTWARE PROGRAMMER [facility] Giardia Negative Negative 12/28/2024 11:17 AM SOFTWARE PROGRAMMER [facility] Adenovirus F40/41 Negative Negative 025 11:17 AM SOFTWARE PROGRAMMER [facility] Astrovirus Negative Negative 12/28/2024 11:17 AM SOFTWARE PROGRAMMER [facility] Norovirus GI/GII Negative Negative 12/28/19 11:17 AM SOFTWARE PROGRAMMER [facility] Rotavirus Ag, F Negative Negative 11:17 AM SOFTWARE PROGRAMMER [facility] Sapovirus Negative Negative 12/28/2024 11:17 AM SOFTWARE PROGRAMMER [facility] Comment: ----ADDITIONAL INFORMATION---- This assay is performed using the FDA-cleared FilmArray GI Panel ([employer] Semi-Urgent This is a semi-urgent result(MOTA) [facility] Stool (Stool) 12/28/2024 9:2 5 AM SOFTWARE PROGRAMMER 12/28/2024 9:25 AM SOFTWARE PROGRAMMER Cristian Augustin APRNNRashida LAB MICROBIOLOGY - GENERAL ORDERABLES Final Result [facility] [address] [place] [address], [facility] [address] [place] [address] * (ABNORMAL) Basic Metabolic Panel (12/28/2024 9:08 AM SOFTWARE PROGRAMMER) Potassium, P 3.9 3.6 - 5.2 mmol/L 12/28/2024 9:35 AM SOFTWARE PROGRAMMER [facility] Sodium, P 142 135 - 145 mmol/L 12/28/2024 9:35 AM SOFTWARE PROGRAMMER [facility] Chloride, P 107 98 - 107 mmol/L 12/28/2024 9:35 AM SOFTWARE PROGRAMMER [facility] Bicarbonate, P 25 22 - 29 mmol/L 12/28/2024 9:35 AM SOFTWARE PROGRAMMER [facility] Anion Gap, P 10 7 - 15 12/28/2024 9:35 AM SOFTWARE PROGRAMMER [facility] BUN (Blood Urea Nitrogen), P 10 8 - 24 mg/dL 12/28/2024 9:35 AM SOFTWARE PROGRAMMER [facility] Creatinine 0.87 0.74 - 1.35 mg/dL 12/28/2024 9:35 AM SOFTWARE PROGRAMMER [facility] Estimated GFR (eGFR) >90 >=60 mL/min/BSA 12/28/2024 9:35 AM SOFTWARE PROGRAMMER [facility] Comment: Estimated GFR calculated using the 2020 CKD_EPI creatinine equation. Calcium, Total, P 8.4(L) 8.8 - 10.2 mg/dL 12/28/2024 9:35 AM SOFTWARE PROGRAMMER [facility] Glucose, P 102 70 - 140 mg/dL 12/28/2024 9:35 AM SOFTWARE PROGRAMMER [facility] Blood (Blood, Venous) 12/28/2024 9:08 AM SOFTWARE PROGRAMMER 12/28/2024 9:14 AM SOFTWARE PROGRAMMER us Ronald Koenig APRN C.N.PVernell LAB BLOOD ADD-ON Fi nal Result [facility] [address] [place] [address], [facility] [place] [address] [place] [address] * (ABNORMAL) CBC with Differential, Blood (12/28/2024 9:08 AM SOFTWARE PROGRAMMER) Hemoglobin 15.6 13.2 - 16.6 g/dL 12/28/2024 9:21 AM SOFTWARE PROGRAMMER [facility] Hematocrit 46.2 38.3 - 48.6 % 12/28/2024 9:21 AM SOFTWARE PROGRAMMER [facility] Erythrocytes 5.16 4.35 - 5.65 x10(12)/L 12/28/2024 9:21 AM SOFTWARE PROGRAMMER [facility] MCV 89.5 78.2 - 97.9 fL 12/28/2024 9:21 AM SOFTWARE PROGRAMMER [facility] RBC Distrib Width 14.6(H) 11.8 - 14.5 % 12/28/2024 9:21 AM SOFTWARE PROGRAMMER [facility] Platelet Count 315 135 - 317 x10(9)/L 12/28/2024 9:21 AM SOFTWARE PROGRAMMER [facility] Leukocytes 8.7 3.4 - 9.6 x10(9)/L 12/28/2024 9:21 AM SOFTWARE PROGRAMMER [facility] Neutrophils 5.09 1.56 - 6.45 x10(9)/L 12/28/2024 9:20 AM SOFTWARE PROGRAMMER [facility] Lymphocytes 2.52 0.95 - 3.07 x10(9)/L 12/28/2024 9:21 AM SOFTWARE PROGRAMMER [facility] Monocytes 0.74 0.26 - 0.81 x10(9)/L 12/28/2024 9:21 AM SOFTWARE PROGRAMMER [facility] Eosinophils 0.26 0.03 - 0.48 x10(9)/L 12/28/2024 9:21 AM SOFTWARE PROGRAMMER [facility] Basophils 0.08 0.01 - 0.08 x10(9)/L 12/28/2024 9:21 AM SOFTWARE PROGRAMMER [facility] Blood (Blood, Venous) 12/28/2024 9:08 AM SOFTWARE PROGRAMMER 12/28/2024 9:14 AM SOFTWARE PROGRAMMER Ronald Koenig APRN, C.N.P. LAB BLOOD ADD-ON Fi nal Result [facility] [address] [place] [address], [facility] in [place] [address] [address] documented in this encounter Visit Diagnoses Diagnosis Enterocolitis Due To Clostridium Difficile Not Specified As Recurrent- Primary Sinusitis Acute Chronic Obstructive Pulmonary Disease (HCC) Hyperlipidemia Mixed Herpes Genitalis documented in this encounter Additional Health Concerns Assessment Noted Time PHQ-9 Depression Total Score: 22 025 3:56 PM SOFTWARE PROGRAMMER documented as of this encounter Care Teams Software Project Lead Relationship Specialty Start Date End Date Nelson Palacios M.D. [address] [place] [phone] PCP - General 12/20/22 documented as of this encounter
--- OUTSIDE RECORDS SUMMARY | 2025-01-12 15:09 | XMS_ITS | Continuity of Care Document ---
Author Organization [facility] Address [address] [place] [address] [address] [place] [address] Phone Care Team Providers Care Livestock Caretaker Name Role Phone Kevin DE JESUS, Lindsay Unavailable Unavailable Advance Directives Directive Yes / No Effective Date File Name No Information Encounters Encounter Description Practice Location Reason(s) For Visit Diagnoses Date Provider Providers Copied on Encounter [facility], [address] [place], [place] [address]Suite [facility], [place], [address], [place] tel:[phone] [facility] No Information Kevin Montoya. [facility], [address] [place] [address] [address], [place], [place], [id number] , [place]. tel:[phone] Family History Family Member Type Diagnosis Age At Onset No Information Payers Payer name Insurance type Covered alliance party ID Authoriza tion(s) No Information Social [...]
[2025-01-12 16:17] VITALS: BP 142/101; PULSE 86; RESP 18; O2SAT 95
[2025-01-12 17:01] LABS: C.Difficile Negative (Negative); CDIFFEPI 027 PRESUMPTIVE NEGATIVE (Negative)
[2025-01-12 17:51] VITALS: BP 154/96; PULSE 91; RESP 18; O2SAT 95
== END 2025-01-12 15:55 | disposition home or self-care (01) ==
PROVIDERS: Emergency Provider Family Medicine
DX: J32.9 Chronic sinusitis, unspecified (principal); R19.7 Diarrhea, unspecified
CPT/HCPCS: 87493; 99283; 99284